=== PATIENT | female | born 1965 | race Caucasian/White ===

== ENCOUNTER 2016-07-22 17:32 | Emergency (ER) | payer MEDICARE ==
[~2016-07-22 17:32] MED LIST: /MYCO50TA PO; ATEN25TA; ATEN25TA PO; CELL500T PO; CIPR500T89 PO; COLA100C PO; COLA50CA3 PO; FLUC10TA PO; FOLI1TAB86 PO; GLIP-163 PO; GLIP10TA6 PO; GLIP5TAB2 PO; K-PHTAB4 PO; LEVA500T PO; LEVO500T PO; LEVO500T32 PO; LISI5TAB PO; MAGN400T5 PO; MYCO500T PO; NEPHTAB PO; POLYPOW78 OR; PRED5TA PO; PRED5TAB PO; PRIL20CA PO; PRIL20CA9 PO; PROCARDIA; PROG1CAP2 PO; SIMV20TA2 PO; SIMVPOW2; TACR0.5C3 PO; TACR5CAP PO; TRAD5TAB PO; VITA200015 PO; [UNRECOGNIZED DRUG - CODE] PO
[2016-07-22 19:37] LABS: BASO % 0.4 % (0.0-1.0); EOS # 0.1 K/mm3 (0.0-0.50); EOS % 1.1 % (0.0-3.0); LARGE UNSTAINED CELL # 0.2 K/mm3 (0.0-0.4); LARGE UNSTAINED CELL % 2.7 % (0.0-4.0); LYMPH # 1.9 K/mm3 (1.5-4.5); LYMPH % 22.6 % (24.0-44.0); MEAN CORPUSCULAR HEMOGLOBIN 30.8 pg (27.0-33.0); MEAN CORPUSCULAR HGB CONC 33.7 g/dl (32.0-36.5); MEAN CORPUSCULAR VOLUME 91.5 fl (80.0-96.0); MONO # 0.4 K/mm3 (0.0-0.8); MONO % 4.4 % (0.0-5.0); NEUTROPHILS # 5.9 K/mm3 (1.8-7.7); NEUTROPHILS % 68.8 % (36.0-66.0); PLATELET COUNT, AUTOMATED 278 k/mm3 (150-450); RED CELL DISTRIBUTION WIDTH 12.2 % (11.5-14.5); WHITE BLOOD COUNT 8.5 K/mm3 (4.0-10.0)
[2016-07-22 19:57] LABS: ANION GAP 11 MEQ/L (8-16); BLOOD UREA NITROGEN 14 MG/DL (7-18); CALCIUM LEVEL 10.2 MG/DL (8.5-10.1); CARBON DIOXIDE LEVEL 25 MEQ/L (21-32); CHLORIDE LEVEL 103 MEQ/L (98-107); CREATININE FOR GFR 0.98 MG/DL (0.55-1.02); GLOMERULAR FILTRATION RATE > 60.0 (>51); POTASSIUM SERUM 4.1 MEQ/L (3.5-5.1); SODIUM LEVEL 139 MEQ/L (136-145)
[2016-07-22 20:16] LABS: GLUCOSE, FASTING 508 MG/DL (70-105)
[2016-07-22] MEDS ORDERED: HumuLIN R (REGULAR) INSULIN (NovoLIN R) **100U/ML** PER UNIT As Ordered ONE (21:17)
--- NOTE | 2016-07-22 22:38 | EDDOCDS ---
Nurse's Notes [facility] Name: Daniella Kovacs Age: 51 yrs Sex: Female : 1965 Arrival Date: 07/22/2016 Time: 17:32 Bed 14 Private MD: Rafy Anthony P Diagnosis: Hyperglycemia, unspecified Presentation: 07/22 17:37 Presenting complaint: Patient states: "my blood sugar was 545 at home, at 1600 today, ead I've eaten since then. I don't take any insulin at home.". Adult Sepsis Screening: The patient does not have new or worsening altered mentation. Patient's respiratory rate is less than 22. Systolic blood pressure is greater than 100. Patient has a qSOFA score of 0- Negative Sepsis Screen. Suicide/Homicide risk assessment- the patient denies having any suicidal and/or homicidal ideations and does not present with any other emotional, behavioral or mental health complaints. Status: Patient is not a direct service worker or dependent. Transition of care: patient was not received from another setting of care. 17:37 Acuity: LACIE Level 3 ead 17:37 Method Of Arrival: Walkin/Carried/Asstd ead Triage Assessment: 17:41 General: Appears in no apparent distress, comfortable, Behavior is appropriate for age, ead cooperative, pleasant. Pain: Denies pain. HIV screening NA for this visit Offered previously. Neurological: Level of Consciousness is awake, alert, obeys commands, Oriented to person, place, time, Denies headache Reports dizziness. Respiratory: Airway is patent Respiratory effort is even, unlabored. GI: Denies nausea, vomiting, pain. Derm: Skin is pink, warm & dry. HEAD OF MOBILE: 17:41 LMP N/A - Post-menopause ead Historical: - Allergies: PENICILLINS; - Home Meds: 1. atenolol 25 mg Oral tab 0.5 tab once daily 2. Vitamin D3 400 unit oral tab daily 3. Colace 100 mg oral cap 1 cap 2 times per day 4. tragenta 5mg daily (Last dose: 07/15/2016) 5. simvastatin 20 mg Oral tab 1 tab once daily 6. Prilosec 20 mg Oral cpDR 1 cap once daily 7. tacrolimus 0.5 mg oral cap every 12 hours 8. prednisone 5 mg oral tab once daily 9. mycophenolate mofetil 500 mg oral tab 2 tabs daily 10. glipizide 10 mg Oral tab 2 times per day (Last dose: 07/22/2016) - PMHx: Diabetes - NIDDM: controlled; Hypertension; nephritis; - PSHx: skin cancer; Appendectomy; fistula; 3 kidney transplants; Exploratory lap; - Social history: Smoking status: Patient states was never smoker of tobacco. No barriers to communication noted, The patient speaks fluent [place], Speaks appropriately for age. - Family history: Not pertinent. - : The pt / caregiver states he / she is not on anticoagulants. Home medication list is obtained from the patient. - Exposure Risk Screening:: None identified. Screenin:18 Screening information is obtained from the patient. Fall risk: No risks identified. tm5 Assistance ADL's: requires no assistance with activities of daily living. Abuse/DV Screen: The patient / caregiver reports he/she is: not in a situation that causes fear, pain or injury. Nutritional screening: No deficits noted. Advance Directives: There is no active DNR order. home support is adequate. Assessment: 19:18 General: Appears in no apparent distress, Behavior is appropriate for age, cooperative. tm5 Pain: Denies pain. Neurological: Level of Consciousness is awake, alert, Oriented to person, place, time. Cardiovascular: Rhythm is regular. Respiratory: Airway is patent Respiratory effort is even, unlabored, Respiratory pattern is regular, symmetrical, Breath sounds are clear bilaterally. GI: No deficits noted. : No deficits noted. Derm: Skin is pink, warm & dry. normal. 19:20 General: Orthostatics completed pt voiced no complaints with position changes . tm5 22:30 Reassessment: Patient appears in no apparent distress at this time. Patient states tm5 feeling better. Patient states symptoms have improved. Vital Signs: 17:34 BP 113 / 75; Pulse 68; Resp 18; Temp 97.9; Pulse Ox 97% ; Weight 54.43 kg; Height 4 ft. jlm 8 in. (142.24 cm); Pain 0/10; 19:14 BP 115 / 75 LA Supine; Pulse 67; Resp 20; Pulse Ox 95% on R/A; Pain 0/10; tm5 19:14 BP 116 / 79 LA Sitting; Pulse 73; tm5 19:14 BP 127 / 79 LA Standing; Pulse 79; tm5 19:45 BP 131 / 73 (auto/); tm5 19:45 Pulse 68 MON; Pulse Ox 96% ; tm5 20:00 BP 115 / 67 (auto/); tm5 20:00 Pulse 72 MON; Pulse Ox 96% ; tm5 20:15 BP 135 / 70 (auto/); tm5 20:15 Pulse 76 MON; Pulse Ox 97% ; tm5 20:30 BP 128 / 77 (auto/); tm5 20:30 Pulse 74 MON; Resp 18 S; Temp 97.9(O); Pulse Ox 96% on R/A; Pain 0/10; tm5 17:34 Body Mass Index 26.90 (54.43 kg, 142.24 cm) [facility] Vitals: 17:34 Log In Time: July 22, 2016 at 17:34. [facility] ED Course: 17:34 Patient visited by Sammi Ortiz, Trimming Caser. [facility] 17:34 Rafy Anthony is Private Physician. jlm 17:34 Patient moved to Waiting jlm 17:35 Patient visited by Sammi Ortiz, Trimming Caser. jlm 17:35 Patient moved to Pre RCE jlm 17:38 Triage Initiated ead 18:32 Patient moved to 14 bnb 18:46 Omid Sinclair MD is Attending Physician. br1 18:47 Patient visited by Susan Nicholson, BANG. hs1 18:53 Patient visited by Omid Sinclair MD. br1 19:02 Patient visited by Salina Alejandro,BANG. tm5 19:02 Patient visited by Tamika Schuler PCA. berta 19:02 Pt greeted and oriented to ED. Patient advised of names of staff involved in care, berta location of call pederson, wait times and NPO status. Accompanied by Significant Other, Patient has correct armband on for positive identification. Placed in gown. Bed in low position. Call light in reach. pressure washer on. Pulse ox on. NIBP on. 19:02 EKG done. (by ED staff). Reviewed by Omid Sinclair MD. berta 19:13 Patient visited by John Rodarte PCA. kb5 19:13 [facility] [place] was scanned into [employer] and attached to record. zo 19:14 Patient visited by Salina Alejandro RN. tm5 19:18 The patient / caregiver is instructed regarding the plan of care and ED course. tm5 19:18 Inserted saline lock: 20 gauge in right forearm and blood collected. The patient tm5 tolerated the procedure well. Labs drawn. (by ED staff). 19:20 BMP Sent. tm5 19:20 CBC with Diff Sent. tm5 20:11 Patient visited by John Rodarte PCA. kb5 20:17 Notified attending ED physician of Critical lab value. glucose of 508mg/dl reported to joann Sinclair. 20:44 Patient visited by Salina Alejandro,BANG. tm5 20:45 Patient visited by Salina Alejandro RN. tm5 20:46 Patient visited by Salina Alejandro RN. tm5 21:00 Patient visited by Salina Alejandro RN. tm5 21:00 awaiting re-evaluation by ER physician. tm5 22:07 Patient visited by Tamika Schuler PCA. berta 22:25 Notified attending ED physician of blood glucose level . tm5 22:27 Patient visited by Omid Sinclair MD. br1 22:28 Rafy Anthony is Referral Physician. br1 22:29 Patient visited by Salina Alejandro RN. tm5 22:29 Discontinued lock intact, bleeding controlled, pressure dressing applied, No tm5 redness/swelling at site. No procedures done that require assistance. 22:37 Patient visited by Salina Alejandro RN. tm5 Administered Medications: 21:18 Drug: Insulin Regular Human 5 units [insulin regular human 100 unit/mL injection tm5 solution (0.05 mL)] {Co-Signature: rw1 (Migue Mendenhall VOLUNTEER PATIENT REPRESENTATIVE).} Route: IVP; Site: right forearm; 22:25 Follow up: Response: blood glucose down to 296 tm5 Point of Care Testing: Blood Glucose: 17:45 Blood Glucose: 536 mg/dL; ead 22:25 Blood Glucose: 296 mg/dL; tm5 Ranges: Order Results: Lab Order: Fingerstick Blood Sugar; SPEC'M 07/22/16 17:44 Test: BEDSIDE GLUCOSE; Value: 536; Range: 70-105; Abnormal: Above upper panic limits; Units: MG/DL; Status: F Test Note: ; RN Notified Lab Order: CBC with Diff; SPEC'M 07/22/16 19:13 Test: WHITE BLOOD COUNT; Value: 8.5; Range: 4.0-10.0; Units: K/mm3; Status: F Test: RED BLOOD COUNT; Value: 5.10; Range: 4.00-5.40; Units: M/mm3; Status: F Test: HEMOGLOBIN; Value: 15.7; Range: 12.0-16.0; Units: g/dl; Status: F Test: HEMATOCRIT; Value: 46.7; Range: 36.0-47.0; Units: %; Status: F Test: MEAN CORPUSCULAR VOLUME; Value: 91.5; Range: 80.0-96.0; Units: fl; Status: F Test: MEAN CORPUSCULAR HEMOGLOBIN; Value: 30.8; Range: 27.0-33.0; Units: pg; Status: F Test: MEAN CORPUSCULAR HGB CONC; Value: 33.7; Range: 32.0-36.5; Units: g/dl; Status: F Test: RED CELL DISTRIBUTION WIDTH; Value: 12.2; Range: 11.5-14.5; Units: %; Status: F Test: PLATELET COUNT, AUTOMATED; Value: 278; Range: 150-450; Units: k/mm3; Status: F Test: NEUTROPHILS %; Value: 68.8; Range: 36.0-66.0; Abnormal: Above high normal; Units: %; Status: F Test: LYMPH %; Value: 22.6; Range: 24.0-44.0; Abnormal: Below low normal; Units: %; Status: F Test: MONO %; Value: 4.4; Range: 0.0-5.0; Units: %; Status: F Test: EOS %; Value: 1.1; Range: 0.0-3.0; Units: %; Status: F Test: BASO %; Value: 0.4; Range: 0.0-1.0; Units: %; Status: F Test: LARGE UNSTAINED CELL %; Value: 2.7; Range: 0.0-4.0; Units: %; Status: F Test: NEUTROPHILS #; Value: 5.9; Range: 1.8-7.7; Units: K/mm3; Status: F Test: LYMPH #; Value: 1.9; Range: 1.5-4.5; Units: K/mm3; Status: F Test: MONO #; Value: 0.4; Range: 0.0-0.8; Units: K/mm3; Status: F Test: EOS #; Value: 0.1; Range: 0.0-0.50; Units: K/mm3; Status: F Test: BASO #; Value: 0.0; Range: 0.0-0.2; Units: K/mm3; Status: F Test: LARGE UNSTAINED CELL #; Value: 0.2; Range: 0.0-0.4; Units: K/mm3; Status: F Lab Order: [facility]; SPEC'M 07/22/16 19:13 Test: GLUCOSE, FASTING; Value: 508; Range: 70-105; Abnormal: Above upper panic limits; Units: MG/DL; Status: F Test: BLOOD UREA NITROGEN; Value: 14; Range: 7-18; Units: MG/DL; Status: F Test: CREATININE FOR GFR; Value: 0.98; Range: 0.55-1.02; Units: MG/DL; Status: F Test: GLOMERULAR FILTRATION RATE; Value: > 60.0; Range: >51; Status: F Test: SODIUM LEVEL; Value: 139; Range: 136-145; Units: MEQ/L; Status: F Test: POTASSIUM SERUM; Value: 4.1; Range: 3.5-5.1; Units: MEQ/L; Status: F Test: CHLORIDE LEVEL; Value: 103; Range: 98-107; Units: MEQ/L; Status: F Test: CARBON DIOXIDE LEVEL; Value: 25; Range: 21-32; Units: MEQ/L; Status: F Test: ANION GAP; Value: 11; Range: 8-16; Units: MEQ/L; Status: F Test: CALCIUM LEVEL; Value: 10.2; Range: 8.5-10.1; Abnormal: Above high normal; Units: MG/DL; Status: F Test Note: ; Units are mL/min/1.73 m2 Chronic Kidney Disease Staging per NKF: Stage I & II GFR >=60 Normal to Mildly Decreased Stage III GFR 30-59 Moderately Decreased Stage IV GFR 15-29 Severely Decreased Stage V GFR <15 Very Little GFR Left ESRD GFR <15 on COMPOSITE BOAT BUILDER Lab Order: Fingerstick Blood Sugar; SPEC'M 07/22/16 22:24 Test: BEDSIDE GLUCOSE; Value: 296; Range: 70-105; Abnormal: Above high normal; Units: MG/DL; Status: F Outcome: 22:29 Discharge ordered by Provider. br1 22:37 Discharge Assessment: Patient awake, alert and oriented x 3. No cognitive and/or tm5 functional deficits noted. Patient verbalized understanding of disposition instructions. patient administered narcotics - no. The following High Risk Discharge criteria are identified: None. Discharged to home ambulatory, with significant other. Condition: good Condition: stable Condition: improved. Discharge instructions given to patient, Instructed on discharge instructions, follow up and referral plans. Demonstrated understanding of instructions, Pt was receptive of discharge instructions/ teaching. No special radiology studies were completed. Property :Personal belongings accompany Pt. 22:38 Patient left the ED. tm5 Signatures: Kathy Gomez, RN RN Yana Pollock Kristopher, COUNSELOR DORMITORY COUNSELOR DORMITORY kb5 Omid Sinclair MD MD br1 Susan Nicholson RN RN hs1 Tamika Schuler, COUNSELOR DORMITORY COUNSELOR DORMITORY Maria Elena Cabrera,Sammi Ocampo RN, Trimming Caser Unit jlSalina Benson RN RN tm5 Karly Baird, COUNSELOR DORMITORY COUNSELOR DORMITORY bnb Migue Mendenhall LPN rw1 Corrections: (The following items were deleted from the chart) 22:30 20:30 Pulse 74bpm; Monitor; Pulse Ox 96%; tm5 tm5 MTDD
--- NOTE | 2016-07-22 22:38 | EDDOCDS ---
Physician Documentation [facility] Name: Daniella Kovacs Age: 51 yrs Sex: Female : 1965 Arrival Date: 07/22/2016 Time: 17:32 Bed 14 Private MD: Rafy Anthony P Disposition: 07/22/16 22:29 Discharged to Home/Self Care. Impression: Hyperglycemia, unspecified. - Condition is Stable. - Discharge Instructions: Hyperglycemia. - Medication Reconciliation, Local Pharmacy Hours form. - Follow up: Rafy Anthony; When: 1 - 2 days; Reason: Recheck today's complaints. - Problem is new. - Symptoms are unchanged. - Notes: You were seen in the ED for high bloog glucose. Bloodwork along with EKG of the heart and cardiac monitoring showed no acute findings. Your blood sugar was controlled with medication in the ED. You may return home to follow up with your primary doctor - please call in the morning to discuss the ED visit, arrange blood glucose recheck and further control of you blood glucose. Return to the ED for any return of high blood sugar, vomiting, pain, fever, inability to tolerate oral foods or liquids or any other concerns. Historical: - Allergies: PENICILLINS; - Home Meds: 1. atenolol 25 mg Oral tab 0.5 tab once daily 2. Vitamin D3 400 unit oral tab daily 3. Colace 100 mg oral cap 1 cap 2 times per day 4. tragenta 5mg daily (Last dose: 07/15/2016) 5. simvastatin 20 mg Oral tab 1 tab once daily 6. Prilosec 20 mg Oral cpDR 1 cap once daily 7. tacrolimus 0.5 mg oral cap every 12 hours 8. prednisone 5 mg oral tab once daily 9. mycophenolate mofetil 500 mg oral tab 2 tabs daily 10. glipizide 10 mg Oral tab 2 times per day (Last dose: 07/22/2016) - PMHx: Diabetes - NIDDM: controlled; Hypertension; nephritis; - PSHx: skin cancer; Appendectomy; fistula; 3 kidney transplants; Exploratory lap; - Social history: Smoking status: Patient states was never smoker of tobacco. No barriers to communication noted, The patient speaks fluent [place], Speaks appropriately for age. - Family history: Not pertinent. - : The pt / caregiver states he / she is not on anticoagulants. Home medication list is obtained from the patient. - Exposure Risk Screening:: None identified. 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 8 in. (142.24 cm); Pain 0/10; 19:14 BP 115 / 75 LA Supine; Pulse 67; Resp 20; Pulse Ox 95% on R/A; Pain 0/10; tm5 19:14 BP 116 / 79 LA Sitting; Pulse 73; tm5 19:14 BP 127 / 79 LA Standing; Pulse 79; tm5 19:45 BP 131 / 73 (auto/); tm5 19:45 Pulse 68 MON; Pulse Ox 96% ; tm5 20:00 BP 115 / 67 (auto/); tm5 20:00 Pulse 72 MON; Pulse Ox 96% ; tm5 20:15 BP 135 / 70 (auto/); tm5 20:15 Pulse 76 MON; Pulse Ox 97% ; tm5 20:30 BP 128 / 77 (auto/); tm5 20:30 Pulse 74 MON; Resp 18 S; Temp 97.9(O); Pulse Ox 96% on R/A; Pain 0/10; tm5 17:34 Body Mass Index 26.90 (54.43 kg, 142.24 cm) [facility] MDM: 17:56 Fingerstick Blood Sugar Ordered. EDMS 18:34 IV Saline Lock ordered. br1 18:35 CBC with Diff Ordered. EDMS 18:35 BMP Ordered. EDMS 18:54 Airport Screener/Pulse Ox/q 30 min VS ordered. br1 18:54 Orthostatic VS ordered. br1 18:54 ECG WITH READING ER PHYS+CARDIAG ordered. EDMS 19:11 Financial registration complete. zo 19:13 [facility] [place] was scanned into [employer] and attached to record. zo 21:12 Fingerstick Blood Sugar Reviewed. br1 21:12 CBC with Diff Reviewed. br1 21:12 BMP Reviewed. br1 21:13 Insulin Regular Human 5 units IVP once ordered. br1 22:22 Accucheck ordered. br1 Point of Care Testing: Blood Glucose: 17:45 Blood Glucose: 536 mg/dL; ead 22:25 Blood Glucose: 296 mg/dL; tm5 Ranges: Administered Medications: 21:18 Drug: Insulin Regular Human 5 units [insulin regular human 100 unit/mL injection tm5 solution (0.05 mL)] {Co-Signature: rw1 (Migue Mendenhall LPN).} Route: IVP; Site: right forearm; 22:25 Follow up: Response: blood glucose down to 296 tm5 Signatures: Dispatcher [employer] EDYana Llanes Brian, MD MD br1 Maria Elena Mtz RN RN eaSalina Sommers RN RN tm5 Migue Mendenhall LPN rw1 The chart was reviewed and I authenticate all verbal orders and agree with the evaluation and treatment provided.Attachments: 19:13 [facility] Payment Agreement zo [email or web address]
--- NOTE | 2016-07-24 07:51 | ECGEPIP ---
Stationary ECG Study [facility] - ED Test Date: 2016-07-22 Pat Name: LUZ MG Department: Room: - Gender: F Legal Nurse Consultant: SimonB: 1965 Requested By: ADAM High Order Number: [id number] Reading MD: Airam Butler Measurements Intervals Keller Rate: 68 P: 17 ND: 171 QRS: 44 QRSD: 93 T: 32 QT: 385 QTc: 410 Interpretive Statements SINUS RHYTHM WITH SINUS ARRHYTHMIA LOW VOLTAGE LIMB PRWP NSTTW ABNORMALITY Electronically Signed On 07-24-2016 7:50:39 EST by Airam Butler
--- NOTE | 2016-07-24 23:38 | EDDOCDS ---
Physician Documentation [facility] Name: Daniella Kovacs Age: 51 yrs Sex: Female : 1965 Arrival Date: 07/22/2016 Time: 17:32 Bed 14 Private MD: Rafy Anthony P Disposition: 07/22/16 22:29 Discharged to Home/Self Care. Impression: Hyperglycemia, unspecified. - Condition is Stable. - Discharge Instructions: Hyperglycemia. - Medication Reconciliation, Local Pharmacy Hours form. - Follow up: Rafy Anthony; When: 1 - 2 days; Reason: Recheck today's complaints. - Problem is new. - Symptoms are unchanged. - Notes: You were seen in the ED for high bloog glucose. Bloodwork along with EKG of the heart and cardiac monitoring showed no acute findings. Your blood sugar was controlled with medication in the ED. You may return home to follow up with your primary doctor - please call in the morning to discuss the ED visit, arrange blood glucose recheck and further control of you blood glucose. Return to the ED for any return of high blood sugar, vomiting, pain, fever, inability to tolerate oral foods or liquids or any other concerns. Historical: - Allergies: PENICILLINS; - Home Meds: 1. atenolol 25 mg Oral tab 0.5 tab once daily 2. Vitamin D3 400 unit oral tab daily 3. Colace 100 mg oral cap 1 cap 2 times per day 4. tragenta 5mg daily (Last dose: 07/15/2016) 5. simvastatin 20 mg Oral tab 1 tab once daily 6. Prilosec 20 mg Oral cpDR 1 cap once daily 7. tacrolimus 0.5 mg oral cap every 12 hours 8. prednisone 5 mg oral tab once daily 9. mycophenolate mofetil 500 mg oral tab 2 tabs daily 10. glipizide 10 mg Oral tab 2 times per day (Last dose: 07/22/2016) - PMHx: Diabetes - NIDDM: controlled; Hypertension; nephritis; - PSHx: skin cancer; Appendectomy; fistula; 3 kidney transplants; Exploratory lap; - Social history: Smoking status: Patient states was never smoker of tobacco. No barriers to communication noted, The patient speaks fluent Irish, Speaks appropriately for age. - Family history: Not pertinent. - : The pt / caregiver states he / she is not on anticoagulants. Home medication list is obtained from the patient. - Exposure Risk Screening:: None identified. 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 8 in. (142.24 cm); Pain 0/10; 19:14 BP 115 / 75 LA Supine; Pulse 67; Resp 20; Pulse Ox 95% on R/A; Pain 0/10; tm5 19:14 BP 116 / 79 LA Sitting; Pulse 73; tm5 19:14 BP 127 / 79 LA Standing; Pulse 79; tm5 19:45 BP 131 / 73 (auto/); tm5 19:45 Pulse 68 MON; Pulse Ox 96% ; tm5 20:00 BP 115 / 67 (auto/); tm5 20:00 Pulse 72 MON; Pulse Ox 96% ; tm5 20:15 BP 135 / 70 (auto/); tm5 20:15 Pulse 76 MON; Pulse Ox 97% ; tm5 20:30 BP 128 / 77 (auto/); tm5 20:30 Pulse 74 MON; Resp 18 S; Temp 97.9(O); Pulse Ox 96% on R/A; Pain 0/10; tm5 17:34 Body Mass Index 26.90 (54.43 kg, 142.24 cm) [facility] MDM: 17:56 Fingerstick Blood Sugar Ordered. EDMS 18:34 IV Saline Lock ordered. br1 18:35 CBC with Diff Ordered. EDMS 18:35 BMP Ordered. EDMS 18:54 Hvac Manager/Pulse Ox/q 30 min VS ordered. br1 18:54 Orthostatic VS ordered. br1 18:54 ECG WITH READING ER PHYS+CARDIAG ordered. EDMS 19:11 Financial registration complete. zo 19:13 [id number] Payment Agreement was scanned into [employer] and attached to record. zo 21:12 Fingerstick Blood Sugar Reviewed. br1 21:12 CBC with Diff Reviewed. br1 21:12 BMP Reviewed. br1 21:13 Insulin Regular Human 5 units IVP once ordered. br1 22:22 Accucheck ordered. br1 01/17 09:51 T-Sheet-- Draft Copy was scanned into [employer] and attached to record. gb 09:52 ECG/EKG was scanned into [employer] and attached to record. gb Point of Care Testing: Blood Glucose: 07/22 17:45 Blood Glucose: 536 mg/dL; ead 22:25 Blood Glucose: 296 mg/dL; tm5 Ranges: Administered Medications: 21:18 Drug: Insulin Regular Human 5 units [insulin regular human 100 unit/mL injection tm5 solution (0.05 mL)] {Co-Signature: rw1 (Migue Mendenhall LPN).} Route: IVP; Site: right forearm; 22:25 Follow up: Response: blood glucose down to 296 tm5 Signatures: Dispatcher [employer] EDMS Laverne Stevens Reg Reg gb Olin, Zoeann zo Roggie, Brian, MD MD br1 Maria Elena Mtz,RN RN ead Salina Alejandro RN RN tm5 Migue Mendenhall LPN rw1 The chart was reviewed and I authenticate all verbal orders and agree with the evaluation and treatment provided.Attachments: 19:13 [facility] Payment Agreement zo 07/23 09:51 T-Sheet-- Draft Copy gb 09:52 ECG/EKG gb Chart Complete MTDD
--- NOTE | 2016-07-24 23:38 | EDDOCDS ---
Nurse's Notes [facility] Name: Luz Mg Age: 51 yrs Sex: Female : 1965 Arrival Date: 07/22/2016 Time: 17:32 Bed 14 Private MD: Rafy Anthony P Diagnosis: Hyperglycemia, unspecified Presentation: 07/22 17:37 Presenting complaint: Patient states: "my blood sugar was 545 at home, at 1600 today, ead I've eaten since then. I don't take any insulin at home.". Adult Sepsis Screening: The patient does not have new or worsening altered mentation. Patient's respiratory rate is less than 22. Systolic blood pressure is greater than 100. Patient has a qSOFA score of 0- Negative Sepsis Screen. Suicide/Homicide risk assessment- the patient denies having any suicidal and/or homicidal ideations and does not present with any other emotional, behavioral or mental health complaints. Status: Patient is not a servicenow administrator developer or dependent. Transition of care: patient was not received from another setting of care. 17:37 Acuity: LACIE Level 3 ead 17:37 Method Of Arrival: Walkin/Carried/Asstd ead Triage Assessment: 17:41 General: Appears in no apparent distress, comfortable, Behavior is appropriate for age, ead cooperative, pleasant. Pain: Denies pain. HIV screening NA for this visit Offered previously. Neurological: Level of Consciousness is awake, alert, obeys commands, Oriented to person, place, time, Denies headache Reports dizziness. Respiratory: Airway is patent Respiratory effort is even, unlabored. GI: Denies nausea, vomiting, pain. Derm: Skin is pink, warm & dry. 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 atenolol 25 mg Oral tab 0.5 tab once daily 2. Vitamin D3 400 unit oral tab daily 3. Colace 100 mg oral cap 1 cap 2 times per day 4. tragenta 5mg daily (Last dose: 07/15/2016) 5. simvastatin 20 mg Oral tab 1 tab once daily 6. Prilosec 20 mg Oral cpDR 1 cap once daily 7. tacrolimus 0.5 mg oral cap every 12 hours 8. prednisone 5 mg oral tab once daily 9. mycophenolate mofetil 500 mg oral tab 2 tabs daily 10. glipizide 10 mg Oral tab 2 times per day (Last dose: 07/22/2016) - PMHx: Diabetes - NIDDM: controlled; Hypertension; nephritis; - PSHx: skin cancer; Appendectomy; fistula; 3 kidney transplants; Exploratory lap; - Social history: Smoking status: Patient states was never smoker of tobacco. No barriers to communication noted, The patient speaks fluent Zimbabwean, Speaks appropriately for age. - Family history: Not pertinent. - : The pt / caregiver states he / she is not on anticoagulants. Home medication list is obtained from the patient. - Exposure Risk Screening:: None identified. Screenin:18 Screening information is obtained from the patient. Fall risk: No risks identified. tm5 Assistance ADL's: requires no assistance with activities of daily living. Abuse/DV Screen: The patient / caregiver reports he/she is: not in a situation that causes fear, pain or injury. Nutritional screening: No deficits noted. Advance Directives: There is no active DNR order. home support is adequate. Assessment: 19:18 General: Appears in no apparent distress, Behavior is appropriate for age, cooperative. tm5 Pain: Denies pain. Neurological: Level of Consciousness is awake, alert, Oriented to person, place, time. Cardiovascular: Rhythm is regular. Respiratory: Airway is patent Respiratory effort is even, unlabored, Respiratory pattern is regular, symmetrical, Breath sounds are clear bilaterally. GI: No deficits noted. : No deficits noted. Derm: Skin is pink, warm & dry. normal. 19:20 General: Orthostatics completed pt voiced no complaints with position changes . tm5 22:30 Reassessment: Patient appears in no apparent distress at this time. Patient states tm5 feeling better. Patient states symptoms have improved. Vital Signs: 17:34 BP 113 / 75; Pulse 68; Resp 18; Temp 97.9; Pulse Ox 97% ; Weight 54.43 kg; Height 4 ft. jlm 8 in. (142.24 cm); Pain 0/10; 19:14 BP 115 / 75 LA Supine; Pulse 67; Resp 20; Pulse Ox 95% on R/A; Pain 0/10; tm5 19:14 BP 116 / 79 LA Sitting; Pulse 73; tm5 19:14 BP 127 / 79 LA Standing; Pulse 79; tm5 19:45 BP 131 / 73 (auto/); tm5 19:45 Pulse 68 MON; Pulse Ox 96% ; tm5 20:00 BP 115 / 67 (auto/); tm5 20:00 Pulse 72 MON; Pulse Ox 96% ; tm5 20:15 BP 135 / 70 (auto/); tm5 20:15 Pulse 76 MON; Pulse Ox 97% ; tm5 20:30 BP 128 / 77 (auto/); tm5 20:30 Pulse 74 MON; Resp 18 S; Temp 97.9(O); Pulse Ox 96% on R/A; Pain 0/10; tm5 17:34 Body Mass Index 26.90 (54.43 kg, 142.24 cm) [facility] Vitals: 17:34 Log In Time: July 22, 2016 at 17:34. [facility] ED Course: 17:34 Patient visited by Sammi Ortiz, Medical Laboratory Technical Officer. [facility] 17:34 Rafy Anthony is Private Physician. jlm 17:34 Patient moved to Waiting jlm 17:35 Patient visited by Sammi Ortiz, Medical Laboratory Technical Officer. jlm 17:35 Patient moved to Pre RCE jlm 17:38 Triage Initiated ead 18:32 Patient moved to 14 bnb 18:46 Adam Sinclair MD is Attending Physician. br1 18:47 Patient visited by Susan Nicholson, BANG. hs1 18:53 Patient visited by Adam Sinclair MD. br1 19:02 Patient visited by Salina Alejandro,BANG. tm5 19:02 Patient visited by Tamika Schuler PCA. berta 19:02 Pt greeted and oriented to ED. Patient advised of names of staff involved in care, berta location of call pederson, wait times and NPO status. Accompanied by Significant Other, Patient has correct armband on for positive identification. Placed in gown. Bed in low position. Call light in reach. automobile body repair chief on. Pulse ox on. NIBP on. 19:02 EKG done. (by ED staff). Reviewed by Adam Sinclair MD. berta 19:13 Patient visited by John Rodarte PCA. kb5 19:13 [facility] Payment Agreement was scanned into [employer] and attached to record. zo 19:14 Patient visited by Salina Alejandro RN. tm5 19:18 The patient / caregiver is instructed regarding the plan of care and ED course. tm5 19:18 Inserted saline lock: 20 gauge in right forearm and blood collected. The patient tm5 tolerated the procedure well. Labs drawn. (by ED staff). 19:20 BMP Sent. tm5 19:20 CBC with Diff Sent. tm5 20:11 Patient visited by John Rodarte PCA. kb5 20:17 Notified attending ED physician of Critical lab value. glucose of 508mg/dl reported to joann Sinclair. 20:44 Patient visited by Salina Alejandro,BANG. tm5 20:45 Patient visited by Salina Alejandro RN. tm5 20:46 Patient visited by Sailna Alejandro RN. tm5 21:00 Patient visited by Salina Alejandro RN. tm5 21:00 awaiting re-evaluation by ER physician. tm5 22:07 Patient visited by Tamika Schuler PCA. berta 22:25 Notified attending ED physician of blood glucose level . tm5 22:27 Patient visited by Adam Sinclair MD. br1 22:28 Rafy Anthony is Referral Physician. br1 22:29 Patient visited by Salina Alejandro RN. tm5 22:29 Discontinued lock intact, bleeding controlled, pressure dressing applied, No tm5 redness/swelling at site. No procedures done that require assistance. 22:37 Patient visited by Salina Alejandro RN. tm5 07/23 09:51 T-Sheet-- Draft Copy was scanned into [employer] and attached to record. gb 09:52 ECG/EKG was scanned into [employer] and attached to record. gb 07/24 08:22 EKG-ADULT Returned. EDMS Administered Medications: 07/22 21:18 Drug: Insulin Regular Human 5 units [insulin regular human 100 unit/mL injection tm5 solution (0.05 mL)] {Co-Signature: rw1 (Migue Mendenhall NEON TECHNICIAN).} Route: IVP; Site: right forearm; 22:25 Follow up: Response: blood glucose down to 296 tm5 Point of Care Testing: Blood Glucose: 17:45 Blood Glucose: 536 mg/dL; ead 22:25 Blood Glucose: 296 mg/dL; tm5 Ranges: Order Results: Lab Order: Fingerstick Blood Sugar; SPEC'M 07/22/16 17:44 Test: BEDSIDE GLUCOSE; Value: 536; Range: 70-105; Abnormal: Above upper panic limits; Units: MG/DL; Status: F Test Note: ; RN Notified Lab Order: CBC with Diff; SPEC'M 07/22/16 19:13 Test: WHITE BLOOD COUNT; Value: 8.5; Range: 4.0-10.0; Units: K/mm3; Status: F Test: RED BLOOD COUNT; Value: 5.10; Range: 4.00-5.40; Units: M/mm3; Status: F Test: HEMOGLOBIN; Value: 15.7; Range: 12.0-16.0; Units: g/dl; Status: F Test: HEMATOCRIT; Value: 46.7; Range: 36.0-47.0; Units: %; Status: F Test: MEAN CORPUSCULAR VOLUME; Value: 91.5; Range: 80.0-96.0; Units: fl; Status: F Test: MEAN CORPUSCULAR HEMOGLOBIN; Value: 30.8; Range: 27.0-33.0; Units: pg; Status: F Test: MEAN CORPUSCULAR HGB CONC; Value: 33.7; Range: 32.0-36.5; Units: g/dl; Status: F Test: RED CELL DISTRIBUTION WIDTH; Value: 12.2; Range: 11.5-14.5; Units: %; Status: F Test: PLATELET COUNT, AUTOMATED; Value: 278; Range: 150-450; Units: k/mm3; Status: F Test: NEUTROPHILS %; Value: 68.8; Range: 36.0-66.0; Abnormal: Above high normal; Units: %; Status: F Test: LYMPH %; Value: 22.6; Range: 24.0-44.0; Abnormal: Below low normal; Units: %; Status: F Test: MONO %; Value: 4.4; Range: 0.0-5.0; Units: %; Status: F Test: EOS %; Value: 1.1; Range: 0.0-3.0; Units: %; Status: F Test: BASO %; Value: 0.4; Range: 0.0-1.0; Units: %; Status: F Test: LARGE UNSTAINED CELL %; Value: 2.7; Range: 0.0-4.0; Units: %; Status: F Test: NEUTROPHILS #; Value: 5.9; Range: 1.8-7.7; Units: K/mm3; Status: F Test: LYMPH #; Value: 1.9; Range: 1.5-4.5; Units: K/mm3; Status: F Test: MONO #; Value: 0.4; Range: 0.0-0.8; Units: K/mm3; Status: F Test: EOS #; Value: 0.1; Range: 0.0-0.50; Units: K/mm3; Status: F Test: BASO #; Value: 0.0; Range: 0.0-0.2; Units: K/mm3; Status: F Test: LARGE UNSTAINED CELL #; Value: 0.2; Range: 0.0-0.4; Units: K/mm3; Status: F Lab Order: [facility]; SPEC'M 07/22/16 19:13 Test: GLUCOSE, FASTING; Value: 508; Range: 70-105; Abnormal: Above upper panic limits; Units: MG/DL; Status: F Test: BLOOD UREA NITROGEN; Value: 14; Range: 7-18; Units: MG/DL; Status: F Test: CREATININE FOR GFR; Value: 0.98; Range: 0.55-1.02; Units: MG/DL; Status: F Test: GLOMERULAR FILTRATION RATE; Value: > 60.0; Range: >51; Status: F Test: SODIUM LEVEL; Value: 139; Range: 136-145; Units: MEQ/L; Status: F Test: POTASSIUM SERUM; Value: 4.1; Range: 3.5-5.1; Units: MEQ/L; Status: F Test: CHLORIDE LEVEL; Value: 103; Range: 98-107; Units: MEQ/L; Status: F Test: CARBON DIOXIDE LEVEL; Value: 25; Range: 21-32; Units: MEQ/L; Status: F Test: ANION GAP; Value: 11; Range: 8-16; Units: MEQ/L; Status: F Test: CALCIUM LEVEL; Value: 10.2; Range: 8.5-10.1; Abnormal: Above high normal; Units: MG/DL; Status: F Test Note: ; Units are mL/min/1.73 m2 Chronic Kidney Disease Staging per NKF: Stage I & II GFR >=60 Normal to Mildly Decreased Stage III GFR 30-59 Moderately Decreased Stage IV GFR 15-29 Severely Decreased Stage V GFR <15 Very Little GFR Left ESRD GFR <15 on SUPERVISOR PIPE JOINTS Lab Order: Fingerstick Blood Sugar; SPEC'M 07/22/16 22:24 Test: BEDSIDE GLUCOSE; Value: 296; Range: 70-105; Abnormal: Above high normal; Units: MG/DL; Status: F Radiology Order: EKG-ADULT Test: EKG-ADULT REASON FOR EXAMINATION: dysrhythmia; Stationary ECG Study; [facility] - ED; ; Test Date: 2016-07-22; Pat Name: LUZ MG Department:; Room: -; Gender: F Coach 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 br1 22:37 Discharge Assessment: Patient awake, alert and oriented x 3. No cognitive and/or tm5 functional deficits noted. Patient verbalized understanding of disposition instructions. patient administered narcotics - no. The following High Risk Discharge criteria are identified: None. Discharged to home ambulatory, with significant other. Condition: good Condition: stable Condition: improved. Discharge instructions given to patient, Instructed on discharge instructions, follow up and referral plans. Demonstrated understanding of instructions, Pt was receptive of discharge instructions/ teaching. No special radiology studies were completed. Property :Personal belongings accompany Pt. 22:38 Patient left the ED. tm5 Signatures: Dispatcher [facility] Kathy Huang RN RN Laverne Marcial, Reg Reg gb Kiko, John Mayo, ASSISTANT FOREMAN ASSISTANT FOREMAN kb5 Adam Sinclair MD MD br1 Susan Nicholson, RN RN hs1 GangaJayy, ASSISTANT FOREMAN ASSISTANT FOREMAN berta Maria Elena Mtz,RN Sammi Ocampo, Medical Laboratory Technical Officer Unit [facility] Salina Alejandro RN RN tm5 Karly Baird, ASSISTANT FOREMAN ASSISTANT FOREMAN bnb Migue Mendenhall LPN rw1 Corrections: (The following items were deleted from the chart) 22:30 20:30 Pulse 74bpm; Monitor; Pulse Ox 96%; tm5 tm5 Chart Complete MTDD
--- NOTE | 2016-07-24 23:38 | EDDOCDS ---
Physician Documentation [facility] Name: Daniella Kovacs Age: 51 yrs Sex: Female : 1965 Arrival Date: 07/22/2016 Time: 17:32 Bed 14 Private MD: Rafy Anthony P Disposition: 07/22/16 22:29 Discharged to Home/Self Care. Impression: Hyperglycemia, unspecified. - Condition is Stable. - Discharge Instructions: Hyperglycemia. - Medication Reconciliation, Local Pharmacy Hours form. - Follow up: Rafy Anthony; When: 1 - 2 days; Reason: Recheck today's complaints. - Problem is new. - Symptoms are unchanged. - Notes: You were seen in the ED for high bloog glucose. Bloodwork along with EKG of the heart and cardiac monitoring showed no acute findings. Your blood sugar was controlled with medication in the ED. You may return home to follow up with your primary doctor - please call in the morning to discuss the ED visit, arrange blood glucose recheck and further control of you blood glucose. Return to the ED for any return of high blood sugar, vomiting, pain, fever, inability to tolerate oral foods or liquids or any other concerns. Historical: - Allergies: PENICILLINS; - Home Meds: 1. atenolol 25 mg Oral tab 0.5 tab once daily 2. Vitamin D3 400 unit oral tab daily 3. Colace 100 mg oral cap 1 cap 2 times per day 4. tragenta 5mg daily (Last dose: 07/15/2016) 5. simvastatin 20 mg Oral tab 1 tab once daily 6. Prilosec 20 mg Oral cpDR 1 cap once daily 7. tacrolimus 0.5 mg oral cap every 12 hours 8. prednisone 5 mg oral tab once daily 9. mycophenolate mofetil 500 mg oral tab 2 tabs daily 10. glipizide 10 mg Oral tab 2 times per day (Last dose: 07/22/2016) - PMHx: Diabetes - NIDDM: controlled; Hypertension; nephritis; - PSHx: skin cancer; Appendectomy; fistula; 3 kidney transplants; Exploratory lap; - Social history: Smoking status: Patient states was never smoker of tobacco. No barriers to communication noted, The patient speaks fluent Icelandic, Speaks appropriately for age. - Family history: Not pertinent. - : The pt / caregiver states he / she is not on anticoagulants. Home medication list is obtained from the patient. - Exposure Risk Screening:: None identified. 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 8 in. (142.24 cm); Pain 0/10; 19:14 BP 115 / 75 LA Supine; Pulse 67; Resp 20; Pulse Ox 95% on R/A; Pain 0/10; tm5 19:14 BP 116 / 79 LA Sitting; Pulse 73; tm5 19:14 BP 127 / 79 LA Standing; Pulse 79; tm5 19:45 BP 131 / 73 (auto/); tm5 19:45 Pulse 68 MON; Pulse Ox 96% ; tm5 20:00 BP 115 / 67 (auto/); tm5 20:00 Pulse 72 MON; Pulse Ox 96% ; tm5 20:15 BP 135 / 70 (auto/); tm5 20:15 Pulse 76 MON; Pulse Ox 97% ; tm5 20:30 BP 128 / 77 (auto/); tm5 20:30 Pulse 74 MON; Resp 18 S; Temp 97.9(O); Pulse Ox 96% on R/A; Pain 0/10; tm5 17:34 Body Mass Index 26.90 (54.43 kg, 142.24 cm) [facility] MDM: 17:56 Fingerstick Blood Sugar Ordered. EDMS 18:34 IV Saline Lock ordered. br1 18:35 CBC with Diff Ordered. EDMS 18:35 BMP Ordered. EDMS 18:54 High Wire Artist/Pulse Ox/q 30 min VS ordered. br1 18:54 Orthostatic VS ordered. br1 18:54 ECG WITH READING ER PHYS+CARDIAG ordered. EDMS 19:11 Financial registration complete. zo 19:13 [facility] Payment Agreement was scanned into [employer] and attached to record. zo 21:12 Fingerstick Blood Sugar Reviewed. br1 21:12 CBC with Diff Reviewed. br1 21:12 BMP Reviewed. br1 21:13 Insulin Regular Human 5 units IVP once ordered. br1 22:22 Accucheck ordered. br1 01/17 09:51 T-Sheet-- Draft Copy was scanned into [employer] and attached to record. gb 09:52 ECG/EKG was scanned into [employer] and attached to record. gb Point of Care Testing: Blood Glucose: 07/22 17:45 Blood Glucose: 536 mg/dL; ead 22:25 Blood Glucose: 296 mg/dL; tm5 Ranges: Administered Medications: 21:18 Drug: Insulin Regular Human 5 units [insulin regular human 100 unit/mL injection tm5 solution (0.05 mL)] {Co-Signature: rw1 (iMgue Mendenhall LPN).} Route: IVP; Site: right forearm; 22:25 Follow up: Response: blood glucose down to 296 tm5 Signatures: Dispatcher [employer] EDMS Laverne Stevens Reg Reg gb Olin, Zoeann zo Roggie, Brian, MD MD br1 Maria Elena Mtz,RN RN ead Salina Alejandro RN RN tm5 Migue Mendenhall LPN rw1 The chart was reviewed and I authenticate all verbal orders and agree with the evaluation and treatment provided.Attachments: 19:13 [facility] Payment Agreement zo 07/23 09:51 T-Sheet-- Draft Copy gb 09:52 ECG/EKG gb Chart Complete MTDD
== END 2016-07-22 22:38 | disposition home or self-care (01) ==
LOC: M ED 17:32
DX: E11.65 Type 2 diabetes mellitus with hyperglycemia (principal); I10 Essential (primary) hypertension; Z94.0 Kidney transplant status; Z85.828 Personal history of other malignant neoplasm of skin; Z79.899 Other long term (current) drug therapy; Z88.0 Allergy status to penicillin

== ENCOUNTER → 2017-05-22 | Outpatient (REF) | payer MEDICARE ==
[~2017-05-22] MED LIST changes: +CIPR-249 PO; -CIPR500T89 PO; -COLA100C PO; +COLA100C5 PO; +LEVA1TAB2 PO; -LEVA500T PO; +LEVO500T3 PO; -LEVO500T32 PO
== END ==
LOC: M LAB REF 12:51
PROVIDERS: ATTEND Internal Medicine Nephrology
DX: Z94.0 Kidney transplant status (principal)

== ENCOUNTER → 2017-11-11 | Outpatient (REF) | payer MEDICARE ==
[2017-11-11 14:19] LABS: CHOLESTEROL LEVEL 183 MG/DL (<200); HDL CHOLESTEROL 69 MG/DL (>40); LDL CHOLESTEROL 85.6 MG/DL (<100); NON-HDL-C 114 MG/DL; TRIGLYCERIDES LEVEL 142 MG/DL (<150)
[2017-11-12 11:36] LABS: CHOLESTEROL RISK RATIO 2.653 (<5)
[2017-11-14 00:09] LABS: FK 506 (TACROLIMUS) LABCORP 4.8 ng/mL (2.0-20.0)
== END ==
LOC: M LAB REF 13:21
DX: Z94.0 Kidney transplant status (principal); Z48.22 Encounter for aftercare following kidney transplant; E78.2 Mixed hyperlipidemia
CPT/HCPCS: 80061

== ENCOUNTER → 2018-01-14 | Outpatient (CLI) | payer MEDICARE | LOC: M SMT 10:05 | DX: R06.02 Shortness of breath (principal) | CPT/HCPCS: 71046 ==

== ENCOUNTER 2018-02-25 20:25 | Inpatient (IN) | payer MEDICARE ==
[2018-02-25 19:31] LABS: BASO % 0.2 % (0.0-1.0); HEMATOCRIT 41.7 % (36.0-47.0); HEMOGLOBIN 14.3 g/dl (12.0-15.5); IMMATURE GRANULOCYTE % 0.5 % (0-3.0); LYMPH # 1.1 10^3/uL (1.5-4.5); LYMPH % 8.1 % (24.0-44.0); MEAN CORPUSCULAR HEMOGLOBIN 30.4 pg (27.0-33.0); MEAN CORPUSCULAR HGB CONC 34.3 g/dl (32.0-36.5); MEAN CORPUSCULAR VOLUME 88.7 fl (80.0-96.0); MONO # 0.8 10^3/uL (0.0-0.8); MONO % 6.5 % (0.0-5.0); NEUTROPHILS % 84.7 % (36.0-66.0); PLATELET COUNT, AUTOMATED 222 10^3/uL (150-450); RED CELL DISTRIBUTION WIDTH 12.3 % (11.5-14.5)
[2018-02-25 19:55] LABS: ALBUMIN 3.2 GM/DL (3.2-5.2); ALBUMIN/GLOBULIN RATIO 0.67 (1.00-1.93); ALKALINE PHOSPHATASE 96 U/L (45-117); ALT/SGPT 57 U/L (12-78); ANION GAP 14 MEQ/L (8-16); AST/SGOT 46 U/L (7-37); BILIRUBIN,DIRECT 0.3 MG/DL (0.0-0.2); BILIRUBIN,TOTAL 0.9 MG/DL (0.2-1.0); BLOOD UREA NITROGEN 15 MG/DL (7-18); CALCIUM LEVEL 9.2 MG/DL (8.5-10.1); CARBON DIOXIDE LEVEL 19 MEQ/L (21-32); CHLORIDE LEVEL 98 MEQ/L (98-107); CREATININE FOR GFR 0.95 MG/DL (0.55-1.30); GLOMERULAR FILTRATION RATE > 60.0 (>51); GLUCOSE, FASTING 251 MG/DL (70-100); LIPASE 100 U/L (73-393); POTASSIUM SERUM 3.8 MEQ/L (3.5-5.1); SODIUM LEVEL 131 MEQ/L (136-145)
[2018-02-25] MEDS: TACROLIMUS 0.5 MG CAP PO (21:00)
[2018-02-25] MEDS: ATENOLOL 12.5MG PER 1/2 TABLET PO (21:00)
[2018-02-25] MEDS: MYCOPHENOLATE MOFETIL 250 MG CAP (J7517) PO (21:00)
[2018-02-25] MEDS ORDERED: ISOVUE-370 76% 100ML VIAL (Q9967) As Ordered (21:03)
[2018-02-25] MEDS: NS 1,000 ML IV (21:05)
[2018-02-25 21:50] LABS: CPK CREATINE PHOSPHOKINASE 64 U/L (26-192); TROPONIN I < 0.02 NG/ML (< 0.10)
[2018-02-25 21:51] LABS: CK-MB VALUE MASS < 1.0 NG/ML (<3.6); MB/CK RELATIVE INDEX 1.56 (< OR =4)
[2018-02-25 21:57] LABS: THYROID STIMULATING HORMONE 0.268 uIU/ML (0.358-3.740)
[2018-02-25 23:56] LABS: KETONE, URINE AUTO RFX 2+ mg/dL (NEGATIVE); NITRITE, URINE AUTO RFX NEGATIVE (NEGATIVE); RBC, URINE AUTO RFX 2 /HPF (0-3); SPECIFIC GRAVITY UR AUTO RFX 1.055 (1.002-1.035); SQUAM EPITHELIAL CELL UR AURFX 1 /HPF (0-6)
[2018-02-25 23:57] LABS: LEUKOCYTE ESTERASE UR AUTO RFX 1+ (NEGATIVE); WBC, URINE AUTO RFX 19 /HPF (0-3)
[2018-02-26] MEDS: NS 1,000 ML IV ×2 (01:21→04:12)
[2018-02-26] MEDS: cefTRIAXone SOD 1 GM in D5W MINI-BAG PLUS 50 ML IV ×2 (01:21→21:55)
[2018-02-26] MEDS ORDERED: BISACODYL 10 MG SUPP PR (02:00)
[2018-02-26] MEDS ORDERED: BISACODYL 5 MG TAB PO (02:00)
[2018-02-26] MEDS ORDERED: ONDANSETRON 4MG/2ML VIAL (J2405) IV (02:00)
[2018-02-26] MEDS ORDERED: NITROGLYCERIN 0.4 MG SUBL TABLET SL (02:15)
[2018-02-26] MEDS ORDERED: DOCUSATE SODIUM 100 MG CAP PO (02:15)
[2018-02-26] MEDS ORDERED: GLUCAGON FOR INJ 1 MG VIAL (J1610) SC (02:30)
[2018-02-26] MEDS ORDERED: DEXTROSE 50% 50 ML SYRINGE IV (02:30)
[2018-02-26] MEDS ORDERED: GLUCOSE 4 GM CHEW TABLET PO (02:30)
[2018-02-26 04:05] LABS: BEDSIDE GLUCOSE 151 MG/DL (70-105)
[2018-02-26] MEDS: LEVEMIR (INSULIN DETEMIR) 1 UNITS/0.01ML SC ×2 (04:07→21:53)
[2018-02-26] MEDS: OMEPRAZOLE 20 MG CAP PO ×2 (04:08→21:53)
[2018-02-26] MEDS: ATORVASTATIN 20 MG TAB PO ×2 (04:08→21:53)
[2018-02-26] MEDS: HEPARIN SOD (PORCINE) 5000 UNITS/ML VIAL SC ×3 (06:46→21:52)
[2018-02-26] MEDS: ACETAMINOPHEN TAB 650MG DOSE (2X325MG) PO (06:57)
[2018-02-26 07:56] LABS: ANION GAP 12 MEQ/L (8-16); BASO % 0.2 % (0.0-1.0); BLOOD UREA NITROGEN 9 MG/DL (7-18); CALCIUM LEVEL 8.3 MG/DL (8.5-10.1); CARBON DIOXIDE LEVEL 18 MEQ/L (21-32); CHLORIDE LEVEL 107 MEQ/L (98-107); CREATININE FOR GFR 0.99 MG/DL (0.55-1.30); GLOMERULAR FILTRATION RATE > 60.0 (>51); GLUCOSE, FASTING 166 MG/DL (70-100); HEMATOCRIT 35.9 % (36.0-47.0); IMMATURE GRANULOCYTE % 0.6 % (0-3.0); LYMPH # 1.3 10^3/uL (1.5-4.5); MEAN CORPUSCULAR VOLUME 91.1 fl (80.0-96.0); MONO # 1.3 10^3/uL (0.0-0.8); MONO % 13.9 % (0.0-5.0); NEUTROPHILS # 6.4 10^3/uL (1.8-7.7); NEUTROPHILS % 71.3 % (36.0-66.0); PLATELET COUNT, AUTOMATED 212 10^3/uL (150-450); POTASSIUM SERUM 3.4 MEQ/L (3.5-5.1); RED BLOOD COUNT 3.94 10^6/uL (4.00-5.40); RED CELL DISTRIBUTION WIDTH 12.5 % (11.5-14.5); SODIUM LEVEL 137 MEQ/L (136-145)
[2018-02-26 08:02] LABS: HEMOGLOBIN 12.2 g/dl (12.0-15.5)
[2018-02-26 08:06] LABS: LACTIC ACID SEPSIS PROTOCOL 2.9 MMOL/L (0.4-2.0)
[2018-02-26] MEDS: HumaLOG INSULIN (NovoLOG) PER UNIT SC ×4 (08:13→21:00)
[2018-02-26 08:19] LABS: BEDSIDE GLUCOSE 145 MG/DL (70-105)
[2018-02-26] MEDS: predniSONE 5 MG TAB PO (08:48)
[2018-02-26] MEDS: ASPIRIN 81 MG ENTERIC TAB PO (08:48)
[2018-02-26] MEDS: MYCOPHENOLATE MOFETIL 250 MG CAP (J7517) PO ×2 (08:49→21:53)
[2018-02-26] MEDS: TACROLIMUS 0.5 MG CAP PO ×2 (08:49→21:54)
[2018-02-26] MEDS: POTASSIUM CHLORIDE 10 MEQ SR TABLET PO (12:26)
[2018-02-26] MEDS: KCL 20MEQ IN 0.45NS 1000ML 1,000 ML IV (12:27)
[2018-02-26] MEDS: SODIUM BICARBONATE 325 MG TAB PO ×2 (12:27→21:54)
[2018-02-26 13:03] LABS: BEDSIDE GLUCOSE 163 MG/DL (70-105)
[2018-02-26 16:35] LABS: BEDSIDE GLUCOSE 204 MG/DL (70-105)
[2018-02-26 21:25] LABS: BEDSIDE GLUCOSE 112 MG/DL (70-105)
[2018-02-26] MEDS: ATENOLOL 12.5MG PER 1/2 TABLET PO (21:54)
[2018-02-27] MEDS: HEPARIN SOD (PORCINE) 5000 UNITS/ML VIAL SC (05:59)
[2018-02-27 06:16] LABS: BEDSIDE GLUCOSE 68 MG/DL (70-105)
[2018-02-27 06:53] LABS: HEMATOCRIT 37.9 % (36.0-47.0); HEMOGLOBIN 12.6 g/dl (12.0-15.5); MEAN CORPUSCULAR HEMOGLOBIN 30.4 pg (27.0-33.0); MEAN CORPUSCULAR HGB CONC 33.2 g/dl (32.0-36.5); MEAN CORPUSCULAR VOLUME 91.3 fl (80.0-96.0); PLATELET COUNT, AUTOMATED 248 10^3/uL (150-450); RED BLOOD COUNT 4.15 10^6/uL (4.00-5.40); RED CELL DISTRIBUTION WIDTH 12.9 % (11.5-14.5); WHITE BLOOD COUNT 8.6 10^3/uL (4.0-10.0)
[2018-02-27 07:20] LABS: ANION GAP 9 MEQ/L (8-16); BLOOD UREA NITROGEN 14 MG/DL (7-18); CALCIUM LEVEL 9.1 MG/DL (8.5-10.1); CARBON DIOXIDE LEVEL 21 MEQ/L (21-32); CHLORIDE LEVEL 109 MEQ/L (98-107); CREATININE FOR GFR 0.76 MG/DL (0.55-1.30); FREE T4 1.02 NG/DL (0.76-1.46); GLOMERULAR FILTRATION RATE > 60.0 (>51); GLUCOSE, FASTING 99 MG/DL (70-100); POTASSIUM SERUM 3.9 MEQ/L (3.5-5.1); SODIUM LEVEL 139 MEQ/L (136-145)
[2018-02-27] MEDS: HumaLOG INSULIN (NovoLOG) PER UNIT SC (07:30)
[2018-02-27] MEDS: predniSONE 5 MG TAB PO (09:17)
[2018-02-27] MEDS: MYCOPHENOLATE MOFETIL 250 MG CAP (J7517) PO (09:17)
[2018-02-27] MEDS: SODIUM BICARBONATE 325 MG TAB PO (09:17)
[2018-02-27] MEDS: TACROLIMUS 0.5 MG CAP PO (09:17)
[2018-02-27] MEDS: ASPIRIN 81 MG ENTERIC TAB PO (09:17)
[2018-03-03 10:21] LABS: FK 506 (TACROLIMUS) LABCORP 5.5 ng/mL (2.0-20.0); MYCOPHENOLIC ACID GLUCURONIDE 58 ug/mL (15-125); MYCOPHENOLIC ACID SERUM 0.8 ug/mL (1.0-3.5)
== END 2018-02-27 10:30 | disposition home or self-care (01) | DRG 872 ==
LOC: M ED INP 02-26 01:56 → M ED 20:25 → M MS5PR 02-26 15:25
DX: A41.9 Sepsis, unspecified organism (principal); N10 Acute pyelonephritis; E87.1 Hypo-osmolality and hyponatremia; E87.2 Acidosis; E11.9 Type 2 diabetes mellitus without complications; I10 Essential (primary) hypertension; E78.5 Hyperlipidemia, unspecified; E87.6 Hypokalemia; K21.9 Gastro-esophageal reflux disease without esophagitis; Z79.52 Long term (current) use of systemic steroids; Z79.82 Long term (current) use of aspirin; Z79.4 Long term (current) use of insulin; Z79.899 Other long term (current) drug therapy; Z88.0 Allergy status to penicillin; Z85.828 Personal history of other malignant neoplasm of skin

== ENCOUNTER → 2018-07-22 | Outpatient (REF) | payer MEDICARE ==
[~2018-07-22] MED LIST changes: +ASPI1TAB15 PO; +ASPI81TA85 PO; +ATOR80TA59 PO; +CEFD300CAP PO; +INSUDET SC; +LIPI80TA PO; +NITR4TASL SL; +PLAV1TAB2 PO; +TYLE325T5 PO
== END ==
LOC: M LAB REF 13:13
PROVIDERS: ATTEND Internal Medicine Nephrology
DX: Z94.0 Kidney transplant status (principal)

== ENCOUNTER → 2018-10-29 | Outpatient (REF) | payer MEDICARE ==
[~2018-10-29] MED LIST changes: -/MYCO50TA PO; +CELL1TAB PO
[2018-10-29 13:55] LABS: CHOLESTEROL RISK RATIO 2.597 (<5)
== END ==
LOC: M LAB REF 13:16
PROVIDERS: ATTEND Internal Medicine Nephrology
DX: Z94.0 Kidney transplant status (principal); Z48.22 Encounter for aftercare following kidney transplant; E78.2 Mixed hyperlipidemia

== ENCOUNTER → 2019-02-09 | Outpatient (REF) | payer MEDICARE | LOC: M LAB REF 13:00 | PROVIDERS: ATTEND Internal Medicine Nephrology | DX: Z94.0 Kidney transplant status (principal) ==

== ENCOUNTER → 2019-06-02 | Outpatient (REF) | payer MEDICARE ==
[2019-06-02 17:55] LABS: CHOLESTEROL RISK RATIO 2.56 (<5)
== END ==
LOC: M LAB REF 17:18
PROVIDERS: ATTEND Internal Medicine Nephrology
DX: Z94.0 Kidney transplant status (principal); E11.22 Type 2 diabetes mellitus with diabetic chronic kidney disease; E78.2 Mixed hyperlipidemia

== ENCOUNTER → 2019-08-27 | Outpatient (REF) | payer MEDICARE ==
[~2019-08-27] MED LIST changes: +SIMV20TA22 PO
== END ==
LOC: M LAB REF 16:57
PROVIDERS: ATTEND Internal Medicine Nephrology
DX: Z94.0 Kidney transplant status (principal)

== ENCOUNTER → 2020-02-11 | Outpatient (REF) | payer MEDICARE ==
[~2020-02-11] MED LIST changes: +ASPI-546 PO; -ASPI1TAB15 PO; -ASPI81TA85 PO; +ASPI81TA86 PO; +PROG1CAP11 PO; -PROG1CAP2 PO
== END ==
LOC: M LAB REF 10:22
PROVIDERS: ATTEND Internal Medicine Nephrology
DX: Z94.0 Kidney transplant status (principal); E11.22 Type 2 diabetes mellitus with diabetic chronic kidney disease; E78.2 Mixed hyperlipidemia

== ENCOUNTER → 2020-06-29 | Outpatient (REF) | payer MEDICARE | LOC: M LAB REF 13:25 | PROVIDERS: ATTEND Internal Medicine Nephrology | DX: Z94.0 Kidney transplant status (principal) ==

== ENCOUNTER → 2020-10-20 | Outpatient (REF) | payer MEDICARE | LOC: M LAB REF 17:11 | PROVIDERS: ATTEND Internal Medicine Nephrology | DX: Z94.0 Kidney transplant status (principal) ==

== ENCOUNTER → 2021-06-15 | Outpatient (REF) | payer MEDICARE ==
[~2021-06-15] MED LIST changes: +CLOP75TA2 PO; +GLIP10TA18 PO; -LEVO500T3 PO; +LEVO500T4 PO; +MAGN500T12 PO; +OMEP1CAP73 PO; +TACR1CAP3 PO
== END ==
LOC: M LAB REF 16:58
PROVIDERS: ATTEND Internal Medicine Nephrology
DX: E83.42 Hypomagnesemia (principal)

== ENCOUNTER 2021-08-30 19:01 | Inpatient (IN) | payer MEDICARE ==
[~2021-08-30] VITALS: Ht 142.2 cm; Wt 56.8 kg
[2021-08-30] MEDS: MYCOPHENOLATE MOFETIL 250 MG CAP (J7517) PO SCH (00:45)
[2021-08-30] MEDS: OMEPRAZOLE 20MG CAP PO SCH (00:45)
[~2021-08-30 19:01] MED LIST changes: -CLOP75TA2 PO; -GLIP10TA18 PO; -MAGN500T12 PO; -OMEP1CAP73 PO; -TACR1CAP3 PO
[2021-08-30] MEDS ORDERED: NS 500 ML IV ONE ×3 (19:25→22:30)
[2021-08-30] MEDS ORDERED: ACETAMINOPHEN TAB 650MG DOSE (2X325MG) PO ONE (19:25)
[2021-08-30 19:31] LABS: BASO % 0.2 % (0.0-1.0); HEMATOCRIT 47.8 % (36.0-47.0); HEMOGLOBIN 16.1 g/dl (12.0-15.5); LYMPH % 5.6 % (24.0-44.0); MEAN CORPUSCULAR HEMOGLOBIN 30.3 pg (27.0-33.0); MEAN CORPUSCULAR HGB CONC 33.7 g/dl (32.0-36.5); MEAN CORPUSCULAR VOLUME 89.8 fl (80.0-96.0); NEUTROPHILS # 14.8 10^3/uL (1.5-8.5); NEUTROPHILS % 84.3 % (36.0-66.0); PLATELET COUNT, AUTOMATED 247 10^3/uL (150-450); RED BLOOD COUNT 5.32 10^6/uL (4.00-5.40); WHITE BLOOD COUNT 17.5 10^3/uL (4.0-10.0)
[2021-08-30] MEDS ORDERED: METOPROLOL 5 MG/5 ML VIAL IV STA (19:31)
[2021-08-30 19:56] LABS: MONO # 1.7 10^3/uL (0.0-0.8)
[2021-08-30 19:57] LABS: MONO % 9.4 % (2.0-8.0)
[2021-08-30 20:07] LABS: ALBUMIN 3.1 GM/DL (3.2-5.2); BILIRUBIN,DIRECT 0.2 MG/DL (0.0-0.2); BILIRUBIN,TOTAL 1.3 MG/DL (0.2-1.0); CALCIUM LEVEL 9.1 MG/DL (8.5-10.1); CREATININE FOR GFR 1.29 MG/DL (0.55-1.30); GLOMERULAR FILTRATION RATE 45.7 (>51); POTASSIUM SERUM 4.7 MEQ/L (3.5-5.1); TOTAL PROTEIN 7.3 GM/DL (6.4-8.2)
[2021-08-30] MEDS ORDERED: ISOVUE-370 76% 100ML VIAL As Ordered ONE (20:23)
[2021-08-30] MEDS ORDERED: cefTRIAXone SOD 2 GM in D5W MINI-BAG PLUS 50 ML IV ONE (20:40)
[2021-08-30 20:45] LABS: CK-MB VALUE MASS 2.6 NG/ML (<3.6); MB/CK RELATIVE INDEX 2.57 (< OR =4)
[2021-08-30 20:50] LABS: ACETONE/KETONE > 46.00 MG/DL (<2.81); MAGNESIUM LEVEL 1.7 MG/DL (1.8-2.4); PHOSPHORUS LEVEL 2.8 MG/DL (2.5-4.9); URIC ACID 11.3 MG/DL (2.6-6.0)
[2021-08-30] MEDS: TACROLIMUS 1 MG CAP (J7507) PO SCH (21:00)
[2021-08-30 21:03] LABS: ABG BASE EXCESS -10.5 (-2.0-2.0); ABG HCO3 13.5 MEQ/L (22.0-26.0); ABG PARTIAL PRESSURE CO2 25.6 mmHg (35.0-45.0); ABG PARTIAL PRESSURE O2 97.7 mmHg (75.0-100.0); ABG STANDARD HCO3 16.2 MEQ/L (22.0-26.0); ABG TOTAL CO2 14.3 MEQ/L (22.0-29.0)
[2021-08-30] MEDS: atenoloL 25 MG TAB PO ONE ×2 (21:18→22:16)
[2021-08-30] MEDS ORDERED: TACR1CAP3 PO (22:29)
[2021-08-30] MEDS ORDERED: GLIP10TA18 PO (22:29)
[2021-08-30] MEDS ORDERED: OMEP1CAP73 PO (22:29)
[2021-08-30] MEDS ORDERED: DEXTROSE 50% 50 ML SYRINGE IV PRN (22:30)
[2021-08-30] MEDS ORDERED: GLUCOSE 4GM CHEW TABLET PO PRN (22:30)
[2021-08-30] MEDS ORDERED: GLUCAGON INJ 1MG VIAL SC PRN (22:30)
[2021-08-30] MEDS ORDERED: CLOP75TA2 PO (22:33)
[2021-08-30] MEDS ORDERED: MAGN500T12 PO (22:33)
[2021-08-30] MEDS ORDERED: HOME MED LIST COMPLETE! XX SCH (22:35)
[2021-08-30] MEDS: MAG SULF 1GM/100ML (MAG RUN) 1 GM in IV 1 EA IV SCH (22:59)
[2021-08-30 23:11] LABS: FREE T4 1.41 NG/DL (0.76-1.46); THYROID STIMULATING HORMONE 0.674 uIU/ML (0.358-3.740)
[2021-08-31] VITALS (29 sets, daily range): BP systolic 94–149; BP diastolic 52–90
[2021-08-31 00:09] LABS: CALCIUM LEVEL 8.3 MG/DL (8.5-10.1); CREATININE FOR GFR 1.14 MG/DL (0.55-1.30); GLOMERULAR FILTRATION RATE 52.7 (>51); POTASSIUM SERUM 4.1 MEQ/L (3.5-5.1)
[2021-08-31 00:15] LABS: CK-MB VALUE MASS 2.9 NG/ML (<3.6); MB/CK RELATIVE INDEX 3.05 (< OR =4)
[2021-08-31] MEDS: MAG SULF 1GM/100ML (MAG RUN) 1 GM in IV 1 EA IV SCH (00:43)
[2021-08-31] MEDS ORDERED: ONDANSETRON 4MG/2ML VIAL IV PRN (01:50)
[2021-08-31] MEDS ORDERED: NS 500 ML IV ONE (03:25)
[2021-08-31 03:35] LABS: CK-MB VALUE MASS 3.7 NG/ML (<3.6); MB/CK RELATIVE INDEX 3.52 (< OR =4)
[2021-08-31] MEDS ORDERED: diltiaZEM 125 MG in NS 100 ML IV SCH ×2 (04:00→04:30)
[2021-08-31] MEDS: APIXABAN 5 MG TAB (ELIQUIS) PO SCH ×2 (05:00→22:06)
[2021-08-31] MEDS ORDERED: DIGOXIN INJ 0.5 MG/2 ML AMP (J1160) IV STA (05:02)
[2021-08-31 05:47] LABS: VENOUS BASE EXCESS -10.4 (-2.0-2.0); VENOUS HCO3 12.7 MEQ/L (23.0-27.0); VENOUS O2 SATURATION 99.3 % (60.0-80.0); VENOUS PARTIAL PRESSURE CO2 22.7 mmHg (38.0-50.0); VENOUS PARTIAL PRESSURE O2 169.7 mmHg (30.0-50.0); VENOUS PH 7.366 UNITS (7.330-7.430); VENOUS STANDARD HCO3 16.4 MEQ/L; VENOUS TOTAL CO2 13.4 MEQ/L (24.0-28.0)
[2021-08-31 05:54] LABS: BASO % 0.2 % (0.0-1.0); HEMATOCRIT 40.8 % (36.0-47.0); HEMOGLOBIN 13.6 g/dl (12.0-15.5); LYMPH # 0.4 10^3/uL (1.5-5.0); LYMPH % 3.2 % (24.0-44.0); MEAN CORPUSCULAR HEMOGLOBIN 30.2 pg (27.0-33.0); MEAN CORPUSCULAR HGB CONC 33.3 g/dl (32.0-36.5); MEAN CORPUSCULAR VOLUME 90.7 fl (80.0-96.0); MONO # 0.7 10^3/uL (0.0-0.8); MONO % 6.8 % (2.0-8.0); NEUTROPHILS # 9.7 10^3/uL (1.5-8.5); NEUTROPHILS % 88.7 % (36.0-66.0); PLATELET COUNT, AUTOMATED 220 10^3/uL (150-450)
[2021-08-31 06:08] LABS: BLOOD UREA NITROGEN 25 MG/DL (7-18); CALCIUM LEVEL 8.4 MG/DL (8.5-10.1); CARBON DIOXIDE LEVEL 11 MEQ/L (21-32); CHLORIDE LEVEL 103 MEQ/L (98-107); CREATININE FOR GFR 0.94 MG/DL (0.55-1.30); GLOMERULAR FILTRATION RATE > 60.0 (>51); GLUCOSE, FASTING 232 MG/DL (70-100); MAGNESIUM LEVEL 2.1 MG/DL (1.8-2.4); POTASSIUM SERUM 4.3 MEQ/L (3.5-5.1); SODIUM LEVEL 134 MEQ/L (136-145)
[2021-08-31 06:18] LABS: MB/CK RELATIVE INDEX 3.49 (< OR =4)
[2021-08-31] MEDS ORDERED: DOCUSATE SODIUM 100MG CAPSULE PO PRN (07:20)
[2021-08-31] MEDS: HumaLOG INSULIN (NovoLOG) PER UNIT SC SCH ×4 (07:38→21:00)
[2021-08-31] MEDS ORDERED: CLOPIDOGREL 75 MG TAB PO SCH (09:00)
[2021-08-31] MEDS: ASPIRIN 81MG ENTERIC TABLET PO SCH (09:35)
[2021-08-31] MEDS: predniSONE 5 MG TAB PO SCH (09:35)
[2021-08-31] MEDS: TACROLIMUS 1 MG CAP (J7507) PO SCH ×2 (09:35→22:06)
[2021-08-31] MEDS: LACTOBACILLUS ACIDOPHILUS CAP (BACID) PO SCH (09:35)
[2021-08-31] MEDS: MYCOPHENOLATE MOFETIL 250 MG CAP (J7517) PO SCH ×2 (09:35→22:06)
[2021-08-31] MEDS: LEVEMIR (INSULIN DETEMIR) 1 UNITS/0.01ML SC SCH (09:35)
[2021-08-31] MEDS ORDERED: atenoloL 25 MG TAB PO ONE (10:15)
[2021-08-31] MEDS ORDERED: atenoloL 25 MG TAB PO SCH (12:00)
[2021-08-31] MEDS ORDERED: ACETAMINOPHEN TAB 650MG DOSE (2X325MG) PO PRN (15:30)
[2021-08-31] MEDS: NS 1,000 ML IV SCH (16:59)
[2021-08-31] MEDS: atenoloL 25 MG TAB PO SCH (18:05)
[2021-08-31] MEDS ORDERED: ATENOLOL 12.5MG PER 1/2 TABLET PO SCH (21:00)
[2021-08-31] MEDS: cefTRIAXone SOD 1 GM in D5W MINI-BAG PLUS 50 ML IV SCH (22:05)
[2021-08-31] MEDS: OMEPRAZOLE 20MG CAP PO SCH (22:05)
[2021-08-31] MEDS: ATORVASTATIN 20 MG TAB PO SCH (22:06)
[2021-09-01] VITALS: BP 116/67
[2021-09-01] MEDS: atenoloL 25 MG TAB PO SCH ×4 (00:54→18:14)
[2021-09-01] MEDS: NS 1,000 ML IV SCH ×2 (03:22→20:31)
[2021-09-01 04:47] LABS: BASO % 0.4 % (0.0-1.0); EOS % 0.1 % (0.0-3.0); HEMATOCRIT 40.9 % (36.0-47.0); HEMOGLOBIN 13.6 g/dl (12.0-15.5); LYMPH # 0.7 10^3/uL (1.5-5.0); MEAN CORPUSCULAR HEMOGLOBIN 30.1 pg (27.0-33.0); MEAN CORPUSCULAR HGB CONC 33.3 g/dl (32.0-36.5); MEAN CORPUSCULAR VOLUME 90.5 fl (80.0-96.0); MONO # 1.1 10^3/uL (0.0-0.8); MONO % 13.2 % (2.0-8.0); NEUTROPHILS # 6.4 10^3/uL (1.5-8.5); NEUTROPHILS % 77.6 % (36.0-66.0); PLATELET COUNT, AUTOMATED 230 10^3/uL (150-450); RED BLOOD COUNT 4.52 10^6/uL (4.00-5.40); WHITE BLOOD COUNT 8.3 10^3/uL (4.0-10.0)
[2021-09-01 05:04] LABS: ALBUMIN 2.3 GM/DL (3.2-5.2); ALT/SGPT 14 U/L (12-78); BILIRUBIN,TOTAL 0.2 MG/DL (0.2-1.0); BLOOD UREA NITROGEN 21 MG/DL (7-18); CALCIUM LEVEL 8.8 MG/DL (8.5-10.1); CARBON DIOXIDE LEVEL 20 MEQ/L (21-32); CHLORIDE LEVEL 109 MEQ/L (98-107); CREATININE FOR GFR 0.93 MG/DL (0.55-1.30); GLOMERULAR FILTRATION RATE > 60.0 (>51); GLUCOSE, FASTING 166 MG/DL (70-100); POTASSIUM SERUM 3.8 MEQ/L (3.5-5.1); SODIUM LEVEL 135 MEQ/L (136-145); TOTAL PROTEIN 6.2 GM/DL (6.4-8.2)
[2021-09-01 07:42] VITALS: BP 117/68
[2021-09-01] MEDS: LEVEMIR (INSULIN DETEMIR) 1 UNITS/0.01ML SC SCH (08:16)
[2021-09-01] MEDS: APIXABAN 5 MG TAB (ELIQUIS) PO SCH ×2 (08:17→22:19)
[2021-09-01] MEDS: predniSONE 5 MG TAB PO SCH (08:17)
[2021-09-01] MEDS: TACROLIMUS 1 MG CAP (J7507) PO SCH ×2 (08:17→22:19)
[2021-09-01] MEDS: LACTOBACILLUS ACIDOPHILUS CAP (BACID) PO SCH (08:17)
[2021-09-01] MEDS: HumaLOG INSULIN (NovoLOG) PER UNIT SC SCH ×4 (08:17→20:31)
[2021-09-01] MEDS: ASPIRIN 81MG ENTERIC TABLET PO SCH (08:17)
[2021-09-01] MEDS: MYCOPHENOLATE MOFETIL 250 MG CAP (J7517) PO SCH ×2 (08:18→22:19)
[2021-09-01 08:32] LABS: INR 1.12; PROTHROMBIN TIME 14.8 SECONDS (12.7-14.5)
[2021-09-01 08:33] LABS: PARTIAL THROMBOPLASTIN TIME 31.9 SECONDS (25.9-37.0)
[2021-09-01 11:47] VITALS: BP 127/80
[2021-09-01 15:25] VITALS: BP 110/74
[2021-09-01] MEDS ORDERED: PILL CUTTER 1 EACH XX PRN (18:10)
[2021-09-01 22:00] VITALS: BP 110/79
[2021-09-01] MEDS: ATORVASTATIN 20 MG TAB PO SCH (22:19)
[2021-09-01] MEDS: OMEPRAZOLE 20MG CAP PO SCH (22:19)
[2021-09-01] MEDS: cefTRIAXone SOD 1 GM in D5W MINI-BAG PLUS 50 ML IV SCH (22:20)
[2021-09-02] MEDS: atenoloL 25 MG TAB PO SCH ×4 (02:37→17:53)
[2021-09-02 06:00] VITALS: BP 106/78
[2021-09-02 07:06] LABS: BASO % 0.6 % (0.0-1.0); EOS # 0.1 10^3/uL (0.0-0.5); EOS % 0.7 % (0.0-3.0); HEMATOCRIT 36.4 % (36.0-47.0); HEMOGLOBIN 11.9 g/dl (12.0-15.5); LYMPH # 1.8 10^3/uL (1.5-5.0); LYMPH % 25.2 % (24.0-44.0); MEAN CORPUSCULAR HEMOGLOBIN 29.9 pg (27.0-33.0); MEAN CORPUSCULAR HGB CONC 32.7 g/dl (32.0-36.5); MEAN CORPUSCULAR VOLUME 91.5 fl (80.0-96.0); MONO # 0.9 10^3/uL (0.0-0.8); MONO % 12.1 % (2.0-8.0); NEUTROPHILS # 4.3 10^3/uL (1.5-8.5); NEUTROPHILS % 60.8 % (36.0-66.0); PLATELET COUNT, AUTOMATED 269 10^3/uL (150-450); RED BLOOD COUNT 3.98 10^6/uL (4.00-5.40)
[2021-09-02] MEDS: HumaLOG INSULIN (NovoLOG) PER UNIT SC SCH ×4 (07:30→21:00)
[2021-09-02 07:34] LABS: ALBUMIN 2.3 GM/DL (3.2-5.2); ALT/SGPT 13 U/L (12-78); BILIRUBIN,TOTAL 0.2 MG/DL (0.2-1.0); BLOOD UREA NITROGEN 24 MG/DL (7-18); CALCIUM LEVEL 8.7 MG/DL (8.5-10.1); CARBON DIOXIDE LEVEL 21 MEQ/L (21-32); CHLORIDE LEVEL 116 MEQ/L (98-107); CREATININE FOR GFR 0.85 MG/DL (0.55-1.30); GLOMERULAR FILTRATION RATE > 60.0 (>51); GLUCOSE, FASTING 88 MG/DL (70-100); MAGNESIUM LEVEL 1.8 MG/DL (1.8-2.4); SODIUM LEVEL 144 MEQ/L (136-145); TOTAL PROTEIN 5.1 GM/DL (6.4-8.2)
[2021-09-02] MEDS ORDERED: DIGOXIN INJ 0.5 MG/2 ML AMP (J1160) IV STA (08:55)
[2021-09-02] MEDS: LEVEMIR (INSULIN DETEMIR) 1 UNITS/0.01ML SC SCH (09:00)
[2021-09-02] MEDS: predniSONE 5 MG TAB PO SCH (09:47)
[2021-09-02] MEDS: APIXABAN 5 MG TAB (ELIQUIS) PO SCH ×2 (09:47→21:46)
[2021-09-02] MEDS: LACTOBACILLUS ACIDOPHILUS CAP (BACID) PO SCH (09:47)
[2021-09-02] MEDS: ASPIRIN 81MG ENTERIC TABLET PO SCH (09:47)
[2021-09-02] MEDS: TACROLIMUS 1 MG CAP (J7507) PO SCH ×2 (09:48→21:47)
[2021-09-02] MEDS: MYCOPHENOLATE MOFETIL 250 MG CAP (J7517) PO SCH ×2 (09:48→21:47)
[2021-09-02] MEDS ORDERED: cefTRIAXone SOD 1 GM in D5W MINI-BAG PLUS 50 ML IV SCH (12:00)
[2021-09-02 14:00] VITALS: BP 102/67
[2021-09-02 21:30] VITALS: BP 116/71
[2021-09-02] MEDS: ATORVASTATIN 20 MG TAB PO SCH (21:46)
[2021-09-02] MEDS: OMEPRAZOLE 20MG CAP PO SCH (21:46)
[2021-09-03] MEDS: atenoloL 25 MG TAB PO SCH ×2 (00:42→06:12)
[2021-09-03 06:00] VITALS: BP 143/79
[2021-09-03 06:11] LABS: HEMATOCRIT 37.7 % (36.0-47.0); HEMOGLOBIN 12.3 g/dl (12.0-15.5); MEAN CORPUSCULAR HGB CONC 32.6 g/dl (32.0-36.5); PLATELET COUNT, AUTOMATED 314 10^3/uL (150-450); WHITE BLOOD COUNT 8.2 10^3/uL (4.0-10.0)
[2021-09-03 06:12] VITALS: BP 143/79
[2021-09-03 06:54] LABS: ALBUMIN 2.8 GM/DL (3.2-5.2); ALT/SGPT 14 U/L (12-78); BILIRUBIN,TOTAL 0.4 MG/DL (0.2-1.0); BLOOD UREA NITROGEN 25 MG/DL (7-18); CALCIUM LEVEL 9.2 MG/DL (8.5-10.1); CARBON DIOXIDE LEVEL 21 MEQ/L (21-32); CHLORIDE LEVEL 115 MEQ/L (98-107); CREATININE FOR GFR 0.86 MG/DL (0.55-1.30); GLOMERULAR FILTRATION RATE > 60.0 (>51); GLUCOSE, FASTING 167 MG/DL (70-100); POTASSIUM SERUM 4.6 MEQ/L (3.5-5.1); SODIUM LEVEL 144 MEQ/L (136-145)
[2021-09-03] MEDS ORDERED: ATEN50TA2 PO (07:27)
[2021-09-03] MEDS ORDERED: DIGO0.123 PO (07:27)
[2021-09-03] MEDS ORDERED: ELIQ5TAB PO (07:27)
[2021-09-03] MEDS ORDERED: RISATAB3 PO (07:27)
[2021-09-03] MEDS ORDERED: LEVO250T3 PO (07:28)
[2021-09-03] MEDS: APIXABAN 5 MG TAB (ELIQUIS) PO SCH (09:00)
[2021-09-03] MEDS: ASPIRIN 81MG ENTERIC TABLET PO SCH (09:00)
[2021-09-03] MEDS: predniSONE 5 MG TAB PO SCH (09:00)
[2021-09-03] MEDS: HumaLOG INSULIN (NovoLOG) PER UNIT SC SCH (09:00)
[2021-09-03] MEDS: LEVEMIR (INSULIN DETEMIR) 1 UNITS/0.01ML SC SCH (09:00)
[2021-09-03] MEDS: LACTOBACILLUS ACIDOPHILUS CAP (BACID) PO SCH (09:00)
[2021-09-03] MEDS ORDERED: DIGOXIN 0.125 MG TAB PO SCH (09:00)
[2021-09-03] MEDS: MYCOPHENOLATE MOFETIL 250 MG CAP (J7517) PO SCH (09:01)
[2021-09-03] MEDS: TACROLIMUS 1 MG CAP (J7507) PO SCH (09:01)
[2021-09-03] MEDS ORDERED: atenoloL 50 MG TAB PO SCH (21:00)
== END 2021-09-03 11:52 | disposition home or self-care (01) | DRG 698 ==
LOC: M ED 19:01 → M ED INP 22:28 → M ICU 08-31 00:10 → M MSPAV 09-01 15:17
PROVIDERS: ADMIT Internal Medicine; ATTEND Internal Medicine
DX: T86.13 Kidney transplant infection (principal); A41.51 Sepsis due to Escherichia coli [E. coli]; N10 Acute pyelonephritis; E87.2 Acidosis; I24.8 Other forms of acute ischemic heart disease; E87.1 Hypo-osmolality and hyponatremia; Z99.2 Dependence on renal dialysis; I48.0 Paroxysmal atrial fibrillation; K21.9 Gastro-esophageal reflux disease without esophagitis; E78.5 Hyperlipidemia, unspecified; I12.9 Hypertensive chronic kidney disease with stage 1 through stage 4 chronic kidney disease, or unspecified chronic kidney disease; N18.9 Chronic kidney disease, unspecified; E86.0 Dehydration; Z95.5 Presence of coronary angioplasty implant and graft; I25.10 Atherosclerotic heart disease of native coronary artery without angina pectoris; E09.22 Drug or chemical induced diabetes mellitus with diabetic chronic kidney disease; Z90.49 Acquired absence of other specified parts of digestive tract

== ENCOUNTER → 2022-02-01 | Outpatient (REF) | payer MEDICARE ==
[~2022-02-01] MED LIST changes: +ATEN50TA2 PO; +CLOP75TA2 PO; +DIGO0.123 PO; +ELIQ5TAB PO; +GLIP10TA18 PO; +LEVO1TAB38 PO; +LEVO1TAB39 PO; -LEVO500T4 PO; +MAGN500T12 PO; +OMEP1CAP73 PO; +RISATAB3 PO; +TACR1CAP3 PO
== END ==
LOC: M LAB REF 16:44
PROVIDERS: ATTEND Internal Medicine Nephrology
DX: Z94.0 Kidney transplant status (principal)

== ENCOUNTER 2022-03-28 19:15 | Inpatient (IN) | payer MEDICARE ==
[~2022-03-28] VITALS: Ht 142.2 cm; Wt 54.3 kg
[2022-03-28] MEDS ORDERED: NS 1,000 ML IV ONE ×2 (20:50)
[2022-03-28] MEDS ORDERED: MORPHINE 4 MG/ML 1ML VIAL/SYRINGE IV ONE (20:50)
[2022-03-28] MEDS ORDERED: ONDANSETRON 4MG 2ML VIAL IV ONE (20:50)
[2022-03-28 21:17] LABS: BASO # 0.1 10^3/uL (0.0-0.2); BASO % 0.4 % (0.0-1.0); HEMATOCRIT 47.5 % (36.0-47.0); HEMOGLOBIN 15.9 g/dl (12.0-15.5); LYMPH # 2.3 10^3/uL (1.5-5.0); LYMPH % 11.2 % (24.0-44.0); MEAN CORPUSCULAR HEMOGLOBIN 29.8 pg (27.0-33.0); MEAN CORPUSCULAR HGB CONC 33.5 g/dl (32.0-36.5); MONO % 9.4 % (2.0-8.0); NEUTROPHILS # 15.8 10^3/uL (1.5-8.5); NEUTROPHILS % 78.4 % (36.0-66.0); PLATELET COUNT, AUTOMATED 329 10^3/uL (150-450); RED BLOOD COUNT 5.34 10^6/uL (4.00-5.40); WHITE BLOOD COUNT 20.2 10^3/uL (4.0-10.0)
[2022-03-28] MEDS ORDERED: NORCO, ANEXSIA 5/325MG TABLET (HYDROcodone/ACETAMINOPHEN) PO ONE (21:25)
[2022-03-28 21:29] LABS: INR 1.06; PROTHROMBIN TIME 14.2 SECONDS (12.7-14.5)
[2022-03-28 21:35] LABS: PARTIAL THROMBOPLASTIN TIME 29.9 SECONDS (25.9-37.0)
[2022-03-28 21:36] LABS: MONO # 1.9 10^3/uL (0.0-0.8)
[2022-03-28] MEDS ORDERED: ISOVUE-370 76% 100ML VIAL As Ordered ONE (21:48)
[2022-03-28 21:59] LABS: ALBUMIN 3.6 GM/DL (3.2-5.2); ALT/SGPT 21 U/L (12-78); BILIRUBIN,DIRECT < 0.1 MG/DL (0.0-0.2); BILIRUBIN,TOTAL 1.1 MG/DL (0.2-1.0); LIPASE 90 U/L (73-393); TOTAL PROTEIN 8.5 GM/DL (6.4-8.2)
[2022-03-28] MEDS ORDERED: cefTRIAXone SOD 1 GM in D5W MINI-BAG PLUS 50 ML IV ONE (22:50)
[2022-03-28] MEDS ORDERED: GLUCOSE 4GM CHEW TABLET PO PRN (23:05)
[2022-03-28] MEDS ORDERED: DEXTROSE 50% 50 ML SYRINGE IV PRN (23:05)
[2022-03-28] MEDS ORDERED: NS 1,000 ML IV SCH (23:05)
[2022-03-28] MEDS ORDERED: GLUCAGON INJ 1MG VIAL SC PRN (23:05)
[2022-03-29] MEDS ORDERED: ATEN50TA2 PO (01:06)
[2022-03-29] MEDS ORDERED: ELIQ5TAB PO (01:06)
[2022-03-29] MEDS ORDERED: BACITAB PO (01:06)
[2022-03-29] MEDS ORDERED: DIGO0.123 PO (01:06)
[2022-03-29] MEDS ORDERED: NOVOINJ3 SC (01:06)
[2022-03-29] MEDS ORDERED: HOME MED LIST COMPLETE! XX SCH (01:10)
[2022-03-29] MEDS: APIXABAN 5 MG TAB (ELIQUIS) PO SCH ×3 (02:56→22:20)
[2022-03-29] MEDS: MYCOPHENOLATE MOFETIL 250 MG CAP (J7517) PO SCH ×3 (02:57→22:20)
[2022-03-29] MEDS: TACROLIMUS 1 MG CAP (J7507) PO SCH ×3 (02:57→22:21)
[2022-03-29] MEDS ORDERED: HEPARIN SOD (PORCINE) 5000UNITS/ML 1ML VIAL/SYRINGE SC SCH (06:00)
[2022-03-29] MEDS: INSULIN LISPRO (NovoLOG) PER UNIT SC SCH ×3 (07:30→17:03)
[2022-03-29 07:52] LABS: BASO # 0.1 10^3/uL (0.0-0.2); BASO % 0.4 % (0.0-1.0); EOS % 0.1 % (0.0-3.0); HEMATOCRIT 40.6 % (36.0-47.0); LYMPH # 2.1 10^3/uL (1.5-5.0); LYMPH % 14.7 % (24.0-44.0); MEAN CORPUSCULAR HEMOGLOBIN 29.3 pg (27.0-33.0); MEAN CORPUSCULAR HGB CONC 31.8 g/dl (32.0-36.5); MEAN CORPUSCULAR VOLUME 92.1 fl (80.0-96.0); MONO % 10.7 % (2.0-8.0); NEUTROPHILS # 10.5 10^3/uL (1.5-8.5); NEUTROPHILS % 73.7 % (36.0-66.0); PLATELET COUNT, AUTOMATED 278 10^3/uL (150-450); RED BLOOD COUNT 4.41 10^6/uL (4.00-5.40); WHITE BLOOD COUNT 14.2 10^3/uL (4.0-10.0)
[2022-03-29 08:30] LABS: ALBUMIN 2.8 GM/DL (3.2-5.2); ALT/SGPT 11 U/L (12-78); BILIRUBIN,TOTAL 0.6 MG/DL (0.2-1.0); BLOOD UREA NITROGEN 14 MG/DL (7-18); CALCIUM LEVEL 8.3 MG/DL (8.5-10.1); CARBON DIOXIDE LEVEL 23 MEQ/L (21-32); CHLORIDE LEVEL 107 MEQ/L (98-107); CREATININE FOR GFR 0.84 MG/DL (0.55-1.30); GLOMERULAR FILTRATION RATE > 60.0 (>51); GLUCOSE, FASTING 173 MG/DL (70-100); POTASSIUM SERUM 3.8 MEQ/L (3.5-5.1); SODIUM LEVEL 138 MEQ/L (136-145); TOTAL PROTEIN 5.8 GM/DL (6.4-8.2)
[2022-03-29 08:42] LABS: HEMOGLOBIN 12.9 g/dl (12.0-15.5); MONO # 1.5 10^3/uL (0.0-0.8)
[2022-03-29] MEDS: ACETAMINOPHEN TAB 650MG DOSE (2X325MG) PO PRN ×3 (10:36→22:35)
[2022-03-29 14:00] VITALS: BP 130/72
[2022-03-29 14:30] VITALS: BP 116/60
[2022-03-29] MEDS ORDERED: INSULIN LISPRO (NovoLOG) PER UNIT SC SCH (21:00)
[2022-03-29 22:00] VITALS: BP 100/53
[2022-03-29] MEDS ORDERED: cefTRIAXone SOD 1 GM in D5W MINI-BAG PLUS 50 ML IV SCH (23:00)
[2022-03-30 06:00] VITALS: BP 122/69
[2022-03-30 06:27] LABS: HEMATOCRIT 39.6 % (36.0-47.0); HEMOGLOBIN 12.8 g/dl (12.0-15.5); MEAN CORPUSCULAR HEMOGLOBIN 29.8 pg (27.0-33.0); MEAN CORPUSCULAR HGB CONC 32.3 g/dl (32.0-36.5); MEAN CORPUSCULAR VOLUME 92.3 fl (80.0-96.0); PLATELET COUNT, AUTOMATED 252 10^3/uL (150-450); RED BLOOD COUNT 4.29 10^6/uL (4.00-5.40); WHITE BLOOD COUNT 6.6 10^3/uL (4.0-10.0)
[2022-03-30 07:18] LABS: ALBUMIN 2.9 GM/DL (3.2-5.2); ALT/SGPT 12 U/L (12-78); BILIRUBIN,TOTAL 0.5 MG/DL (0.2-1.0); BLOOD UREA NITROGEN 14 MG/DL (7-18); CALCIUM LEVEL 8.7 MG/DL (8.5-10.1); CARBON DIOXIDE LEVEL 22 MEQ/L (21-32); CHLORIDE LEVEL 113 MEQ/L (98-107); CREATININE FOR GFR 0.78 MG/DL (0.55-1.30); DIGOXIN LEVEL 0.7 NG/ML (0.5-2.0); GLOMERULAR FILTRATION RATE > 60.0 (>51); GLUCOSE, FASTING 207 MG/DL (70-100); MAGNESIUM LEVEL 1.7 MG/DL (1.8-2.4); PHOSPHORUS LEVEL 2.5 MG/DL (2.5-4.9); POTASSIUM SERUM 4.2 MEQ/L (3.5-5.1); SODIUM LEVEL 142 MEQ/L (136-145); TOTAL PROTEIN 5.9 GM/DL (6.4-8.2)
[2022-03-30 08:00] VITALS: BP 122/68
[2022-03-30] MEDS: INSULIN LISPRO (NovoLOG) PER UNIT SC SCH (08:04)
[2022-03-30] MEDS: TACROLIMUS 1 MG CAP (J7507) PO SCH (09:12)
[2022-03-30] MEDS: MYCOPHENOLATE MOFETIL 250 MG CAP (J7517) PO SCH (09:12)
[2022-03-30] MEDS: APIXABAN 5 MG TAB (ELIQUIS) PO SCH (09:12)
[2022-03-30] MEDS ORDERED: CEFD300C41 PO (09:12)
== END 2022-03-30 09:59 | disposition home or self-care (01) | DRG 872 ==
LOC: M ED 19:15 → M ED INP 23:02 → ENRESERV 03-29 08:15 → M MSPAV 03-29 14:33
PROVIDERS: ADMIT Internal Medicine; ATTEND Internal Medicine
DX: A41.9 Sepsis, unspecified organism (principal); N39.0 Urinary tract infection, site not specified; Z94.0 Kidney transplant status; E11.9 Type 2 diabetes mellitus without complications; I48.91 Unspecified atrial fibrillation; K21.9 Gastro-esophageal reflux disease without esophagitis; I25.10 Atherosclerotic heart disease of native coronary artery without angina pectoris; E03.9 Hypothyroidism, unspecified; K44.9 Diaphragmatic hernia without obstruction or gangrene; Z79.01 Long term (current) use of anticoagulants; Z79.02 Long term (current) use of antithrombotics/antiplatelets; Z79.84 Long term (current) use of oral hypoglycemic drugs; Z79.899 Other long term (current) drug therapy; Z88.0 Allergy status to penicillin; Z95.1 Presence of aortocoronary bypass graft; Z85.828 Personal history of other malignant neoplasm of skin; Z90.49 Acquired absence of other specified parts of digestive tract

== ENCOUNTER → 2022-04-12 | Outpatient (REF) | payer MEDICARE ==
[~2022-04-12] MED LIST changes: +BACITAB PO; +CEFD300C41 PO; +NOVOINJ3 SC
== END ==
LOC: M LAB REF 16:58
PROVIDERS: ATTEND Internal Medicine Nephrology
DX: I48.0 Paroxysmal atrial fibrillation (principal); Z94.0 Kidney transplant status

== ENCOUNTER → 2022-07-29 | Outpatient (REF) | payer OTHER ==
[~2022-07-29] MED LIST changes: +CLOP75TA99 PO; -PLAV1TAB2 PO
[2022-07-29 18:11] LABS: CREATININE, URINE 55.6 MG/DL; MAU/CREAT RATIO 55.7 MCG/MG (0.0-30.0)
== END ==
LOC: M LAB REF 17:02
PROVIDERS: ATTEND Internal Medicine Nephrology
DX: E11.22 Type 2 diabetes mellitus with diabetic chronic kidney disease (principal); I48.0 Paroxysmal atrial fibrillation; Z94.0 Kidney transplant status

== ENCOUNTER → 2022-11-22 | Outpatient (REF) | payer OTHER | LOC: M LAB REF 17:01 | PROVIDERS: ATTEND Internal Medicine Nephrology | DX: Z94.0 Kidney transplant status (principal); I48.0 Paroxysmal atrial fibrillation ==